=== PATIENT | female | born 1940 | race Caucasian/White ===

== ENCOUNTER 2018-05-30 23:04 | Emergency (ER) | payer MEDICARE, OTHER ==
[2018-05-30 23:19] VITALS: BP 168/92
--- NOTE | 2018-05-31 00:18 | ED Physician Documentation ---
PD HPI Fall - Stated complaint Stated Complaint: LOW BACK PAIN - Chief complaint Chief Complaint: Back Pain - History obtained from History obtained from: Patient - History of Present Illness Mechanism of injury: Slipped Fall distance: Standing position, Other (fell down 2 steps) Where injury occurred: Home Timing - onset: Enter time (18:30), Today Injury(ies) location: Chest, Back Pain level now: 4 Quality of pain: Pain Associated symptoms: No: LOC, AMS Symptoms improve with: Rest Worsens with: Movement, Palpation Contributing factors: No: Anticoagulated, Intoxicated Similar symptoms before: Has not had sx before Recently seen: Not recently seen - Additional information Additional information: slipped and fell down two steps at home at 6:30 PM today, struck right chest wall on edge of stair, c/o pain right Review of Systems Cardiac: reports: Chest pain / pressure (right chest wall pain) Respiratory: denies: Dyspnea, Cough GI: denies: Abdominal Pain, Nausea, Vomiting : denies: Hematuria Musculoskeletal: reports: Back pain. 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 HEENT: None Psych: None Musculoskeletal: None Derm: None - Past Surgical History Past Surgical History: Yes General: Other Ortho: Other - Present Medications Home Medications: Ambulatory Orders Medication Instructions Recorded Confirmed PredniSONE [PredniSONE INTENSOL] 10 mg PO ONCE 05/30/18 05/30/18 - Allergies Allergies/Adverse Reactions: Allergies Allergy/AdvReac Type Severity Reaction Status Date / Time Penicillins Allergy Intermediate Anaphylaxis Verified 05/30/18 23:10 - Social History Does the pt smoke?: No Smoking Status: Never smoker Does the pt drink ETOH?: No Does the pt have substance abuse?: No - Immunizations Immunizations are current?: No - POLST Patient has POLST: No PD ED PE NORMAL - Vitals Vital signs reviewed: Yes - General General: Alert and oriented X 3, No acute distress, Well developed/nourished - Respiratory Respiratory: No respiratory distress, Clear bilaterally - Abdomen Abdomen: Soft, Non tender - Back Back: No spinal TTP - Derm Derm: Normal color, Warm and dry - Neuro Neuro: Alert and oriented X 3 PD ED PE EXPANDED - Visual Whole body visual: 1 - tenderness (right posterolateral rib/bony tenderness; no RUQ tenderness) Results - Vitals Vitals: Vital Signs - 24 hr 05/30/18 05/31/18 05/31/18 23:12 00:45 01:40 Temperature 36.7 C Heart Rate 95 Respiratory 18 16 16 Rate Blood Pressure 168/92 H O2 Saturation 96 97 Oxygen O2 Source Room air - Rads (name of study) right ribs w/ PA C Radiology: Prelim report reviewed, See rad report PD MEDICAL DECISION MAKING - ED course Complexity details: reviewed results, re-evaluated patient, considered differential, d/w patient, d/w family - Sepsis Event Vital Signs: Vital Signs - 24 hr 05/30/18 05/31/18 05/31/18 23:12 00:45 01:40 Temperature 36.7 C Heart Rate 95 Respiratory 18 16 16 Rate Blood Pressure 168/92 H O2 Saturation 96 97 Oxygen O2 Source Room air Departure - Departure Disposition: 01 Home, Self Care Clinical Impression: Chest wall contusion Qualifiers: Encounter type: initial encounter Laterality: right Qualified Code(s): S20.211A - Contusion of right front wall of thorax, initial encounter Condition: Good Instructions: ED Contusion Chest Wall, ED Contusion Rib Follow-Up: Jennie Pritchard MD [Primary Care Provider] - Discharge Date/Time: 05/31/18 01:41
[2018-05-31] MEDS ORDERED: ACETAMINOPHEN 325 MG TABLET PO STA (00:32)
--- NOTE | 2018-05-31 01:21 | XRAY Report ---
Reason: fall, right low rib pain Procedure Date: 05/31/2018 Accession Number: [id number] / [id number] Procedure: XR - Ribs w/PA Chest RT CPT Code: FULL RESULT: EXAM: RIGHT RIB RADIOGRAPHY EXAM DATE: 05/31/2018 01:01 AM. CLINICAL HISTORY: Fall, right low rib pain. COMPARISON: None. TECHNIQUE: 1 view of the chest and 3 views of the ribs. FINDINGS: Bones: Normal. No fracture or bone lesion. Lungs: No focal opacities. No pneumothorax. No pleural effusions. Mediastinum: Heart and mediastinal contours are unremarkable. Other: None. IMPRESSION: Normal chest and rib radiography. RADIA
== END 2018-05-31 01:41 | disposition home or self-care (01) ==
LOC: ED 23:04
DX: S20.211A Contusion of right front wall of thorax, initial encounter (principal); W01.0XXA Fall on same level from slipping, tripping and stumbling without subsequent striking against object, initial encounter; W10.9XXA Fall (on) (from) unspecified stairs and steps, initial encounter; Y92.009 Unspecified place in unspecified non-institutional (private) residence as the place of occurrence of the external cause; I10 Essential (primary) hypertension; E78.00 Pure hypercholesterolemia, unspecified
CPT/HCPCS: 71101; 99282; 99283; A9270

== ENCOUNTER 2018-06-16 08:19 | Outpatient (CLI) | payer MEDICARE, OTHER | END 2018-06-16 08:20 | disposition critical access hospital (66) | LOC: EMS 08:19 | PROVIDERS: ATTEND Surgery | DX: R55 Syncope and collapse (principal); M25.571 Pain in right ankle and joints of right foot; W18.39XA Other fall on same level, initial encounter; Y92.000 Kitchen of unspecified non-institutional (private) residence as the place of occurrence of the external cause | CPT/HCPCS: A0425; A0429 ==

== ENCOUNTER 2018-06-16 08:50 | Inpatient (IN) | payer MEDICARE, OTHER ==
[2018-06-16 09:35] LABS: BASOPHILS # (AUTO) 0.1 10^3/uL (0.0-0.1); BASOPHILS % (AUTO) 0.4 %; EOSINOPHILS # (AUTO) 0.2 10^3/uL (0.0-0.7); EOSINOPHILS % (AUTO) 1.1 %; HGB - HEMOGLOBIN 12.3 g/dL (12.0-16.0); LYMPHOCYTES # (AUTO) 1.4 10^3/uL (1.5-3.5); LYMPHOCYTES % (AUTO) 10.5 %; MEAN CORPUSCULAR HEMOGLOBIN 31.1 pg (27.0-31.0); MEAN CORPUSCULAR HGB CONC 34.5 g/dL (32.0-36.0); MEAN CORPUSCULAR VOLUME 90.2 fL (81.0-99.0); MEAN PLATELET VOLUME 6.6 fL (7.9-10.8); MONOCYTES # (AUTO) 0.8 10^3/uL (0.0-1.0); MONOCYTES % (AUTO) 5.9 %; NEUTROPHILS # (AUTO) 11.2 10^3/uL (1.5-6.6); NEUTROPHILS % (AUTO) 82.1 %; PLT - PLATELET COUNT 258 10^3/uL (130-450); RED BLOOD COUNT 3.95 10^6/uL (4.20-5.40); RED CELL DISTRIBUTION WIDTH 15.1 % (12.0-15.0); WHITE BLOOD COUNT 13.6 x10^3/uL (4.8-10.8)
[2018-06-16 09:46] LABS: ALBUMIN 4.2 g/dL (3.2-5.5); ALBUMIN/GLOBULIN RATIO 1.3 (1.0-2.2); BILIRUBIN,TOTAL 1.1 mg/dL (0.2-1.0); CALCIUM 9.2 mg/dL (8.5-10.3); CREATININE 1.1 mg/dL (0.4-1.0); TOTAL PROTEIN 7.5 g/dL (6.7-8.2)
--- NOTE | 2018-06-16 10:12 | XRAY Report ---
Reason: syncope Procedure Date: 06/16/2018 Accession Number: [id number] / [id number] Procedure: XR - Chest 2 View X-Ray CPT Code: 74311 FULL RESULT: EXAM: CHEST RADIOGRAPHY EXAM DATE: 06/16/2018 09:48 AM. CLINICAL HISTORY: Syncope. COMPARISON: RIBS W/PA CHEST RT 05/31/2018 12:38 AM. TECHNIQUE: 2 views. FINDINGS: Lungs/Pleura: No focal opacities evident. No pleural effusion. No pneumothorax. Normal volumes. Mediastinum: Heart and mediastinal contours are unremarkable. Other: None. IMPRESSION: Normal 2-view chest radiography. RADIA
--- NOTE | 2018-06-16 10:18 | XRAY Report ---
Reason: fall Procedure Date: 06/16/2018 Accession Number: [id number] / [id number] Procedure: XR - Ankle 3 View RT CPT Code: FULL RESULT: EXAM: RIGHT ANKLE RADIOGRAPHY EXAM DATE: 06/16/2018 09:48 AM. CLINICAL HISTORY: Fall. COMPARISON: None. TECHNIQUE: 3 views. FINDINGS: Bimalleolar fracture with lateral displacement of the foot in respect to the proximal tibia and fibula. 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 IMPRESSION: Bimalleolar fracture. RADIA
--- NOTE | 2018-06-16 10:28 | CT Report ---
Reason: syncope 3 times today Procedure Date: 06/16/2018 Accession Number: [id number] / [id number] Procedure: CT - Head W/O CPT Code: FULL RESULT: EXAM: CT HEAD EXAM DATE: 06/16/2018 10:16 AM. CLINICAL HISTORY: Syncope 3 times today. COMPARISON: None. TECHNIQUE: Multiaxial CT images were obtained from the foramen magnum to the vertex. Reformats: Sagittal and coronal. IV contrast: None. In accordance with CT protocol optimization, one or more of the following dose reduction techniques were utilized for this exam: automated exposure control, adjustment of mA and/or KV based on patient size, or use of iterative reconstructive technique. FINDINGS: Parenchyma: No intraparenchymal hemorrhage. No evidence of mass, midline shift, or CT findings of infarction. Hodges-white differentiation is distinct. Extraaxial Spaces: Normal for age. No subdural or epidural collections identified. Ventricles: Normal in size and position. Sinuses and Orbits: Imaged paranasal sinuses, orbits, and mastoids show no significant abnormality. Bones: No evidence of fracture or calvarial defect. Other: None. IMPRESSION: No acute intracranial abnormality. RADIA
[2018-06-16] MEDS ORDERED: fentaNYL 100 MCG/2 ML VIAL IVP STA (11:01)
[2018-06-16] MEDS ORDERED: KETAMINE 500 MG/10 ML VIAL IVP STA (11:03)
[2018-06-16] MEDS ORDERED: CLINDAMYCIN 900 MG/50 ML 50 ML IV ONE (11:26)
--- NOTE | 2018-06-16 11:31 | PROVIDER PROGRESS NOTE ---
Subjective - Prog Note Date Prog Note Date: 06/16/18 Prog Note Time: 11:29 - Subjective Pt reports feeling: Worse (Patient fianted and apparently fell, sustaining a closed right ankle fracture/dislocation. No other injuries. Hx of prior ORIF of left ankle fracture in the past. ? hx of osteoporosis) Objective - Vital Signs/Intake & Output Vital Signs: Vital Signs x48h Temp Pulse Resp BP Pulse Ox 06/16/18 09:00 85 16 121/73 98 06/16/18 08:50 36.4 C L 86 16 131/108 H 96 - Lab Results Fish Bones: 06/16/18 09:17 06/16/18 09:17 Other Labs: Lab Results x24hrs 06/16/18 06/16/18 06/16/18 Range/Units 09:17 09:17 09:17 WBC 13.6 H (4.8-10.8) x10^3/uL RBC 3.95 L (4.20-5.40) 10^6/uL Hgb 12.3 (12.0-16.0) g/dL Hct 35.6 L (37.0-47.0) % MCV 90.2 (81.0-99.0) fL MCH 31.1 H (27.0-31.0) pg MCHC 34.5 (32.0-36.0) g/dL RDW 15.1 H (12.0-15.0) % Plt Count 258 (130-450) 10^3/uL MPV 6.6 L (7.9-10.8) fL Neut # (Auto) 11.2 H (1.5-6.6) 10^3/uL Lymph # (Auto) 1.4 L (1.5-3.5) 10^3/uL [place] # (Auto) 0.8 (0.0-1.0) 10^3/uL Eos # (Auto) 0.2 (0.0-0.7) 10^3/uL Baso # (Auto) 0.1 (0.0-0.1) 10^3/uL Absolute Nucleated RBC 0.00 x10^3/uL Nucleated RBC % 0.0 /100WBC Sodium 133 L (135-145) mmol/L Potassium 4.1 (3.5-5.0) mmol/L Chloride 96 L (101-111) mmol/L Carbon Dioxide 27 (21-32) mmol/L Anion Gap 10.0 (6-13) BUN 32 H (6-20) mg/dL Creatinine 1.1 H (0.4-1.0) mg/dL Estimated GFR (MDRD) 48 L (>89) Glucose 111 H (70-100) mg/dL Calcium 9.2 (8.5-10.3) mg/dL Total Bilirubin 1.1 H (0.2-1.0) mg/dL AST 28 (10-42) IU/L ALT 33 (10-60) IU/L Alkaline Phosphatase 82 (42-121) IU/L Troponin I < 0.04 (<0.49) ng/mL Total Protein 7.5 (6.7-8.2) g/dL Albumin 4.2 (3.2-5.5) g/dL Globulin 3.3 (2.1-4.2) g/dL Albumin/Globulin Ratio 1.3 (1.0-2.2) Lipase 61 H (22-51) U/L - Diagnostic Imaging Diagnostic Imaging Comments: EXAM: Right trimalleolar ankle fracture/dislocation - Other Results/Comments Other Results/Comments: EXAM: Right ankle deformity. Moves toes well. Sensation intact. Good cap filling Assessment/Plan - Problem List (1) Closed right ankle fracture Impression: PLAN: Closed reduction and splinting in ER today. Will be admitted and evaluated by medical service for her syncope. If cleared medically, plan ORIF of fracture Wednesday AM. Risk and benefit of surgery explained, including anesthesia risk, malunion, nonunion, infection, neurovascular problems, DVT, etc. Questions answered. Leg marked. Consent signed. Qualifiers: Encounter type: initial encounter Qualified Code(s): S82.891A - Other fracture of right lower leg, initial encounter for closed fracture
[2018-06-16] MEDS ORDERED: SODIUM CHLORIDE 0.9% 1,000 ML IV SCH (12:00)
[2018-06-16] MEDS ORDERED: SODIUM CHLORIDE FLUSH 0.9% 10 ML SYRINGE IVP PRN ×2 (12:38→13:19)
--- NOTE | 2018-06-16 12:41 | ED Physician Documentation ---
History of Present Illness - Stated complaint Stated Complaint: SYNCOPE - Chief complaint Chief Complaint: Cardiac - History obtained from History obtained from: Patient, Family - History of Present Illness Timing: Prior to arrival Pain level max: 0 Pain level now: 0 Quality: DIZZY THEN PASSED OUT LASTING 2-3 MINUTES. 3 TIMES AT HOME Improved by: NOTHING Worsened by: NOTHING - Additonal information Additional information: Pt stated was at the kitchen and felt dizzy then passed out. Family at the bedside heard pt and found her on the floor. When he tried to pick her up, he stated pt's eyes rolled then she passed out. She was out for 2-3 minutes. This occured again. Pt denies any recent trauma, travel, or illness. Review of Systems Ten Systems: 10 systems reviewed and negative Constitutional: denies: Fever, Myalgias Eyes: denies: Loss of vision Ears: denies: Tinnitus/ringing Cardiac: denies: Chest pain / pressure, Palpitations Respiratory: denies: Dyspnea GI: denies: Abdominal Pain, Nausea, Vomiting Musculoskeletal: reports: Extremity pain. denies: Neck pain, Back pain Neurologic: reports: Syncope, LOC. 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 HEENT: None Psych: None Musculoskeletal: None Derm: None - Past Surgical History Past Surgical History: Yes General: Other Ortho: Other - Present Medications Home Medications: Ambulatory Orders Medication Instructions Recorded Confirmed Calcium Carbonate/Vitamin D3 1 tab PO DAILY 06/16/18 06/16/18 [Calcium 500-Vit D3 600 Caplet] Multivitamin [Theragran] 1 tab PO DAILY 06/16/18 06/16/18 [place]-3 Acid Ethyl Esters [Lovaza] 1 gm PO DAILY 06/16/18 06/16/18 RX: Aspirin 162 mg PO DAILY 06/16/18 06/16/18 RX: Atorvastatin Calcium 80 mg PO QPM 06/16/18 06/16/18 RX: Losartan [Cozaar] 75 mg PO DAILY 06/16/18 06/16/18 RX: Omeprazole 20 mg PO QDAC 06/16/18 06/16/18 RX: Polyethylene Glycol 3350 17 gm PO QPM 06/16/18 06/16/18 RX: Prednisone 10 mg PO [id number] 06/16/18 06/16/18 RX: Vitamin B Complex 1 tab PO DAILY 06/16/18 06/16/18 predniSONE [Prednisone] 12.5 mg PO [id number] 06/16/18 06/16/18 - Allergies Allergies/Adverse Reactions: Allergies Allergy/AdvReac Type Severity Reaction Status Date / Time Penicillins Allergy Intermediate Anaphylaxis Verified 06/16/18 08:57 - Social History Does the pt smoke?: No Smoking Status: Never smoker Does the pt drink ETOH?: No Does the pt have substance abuse?: No - Immunizations Immunizations are current?: Yes - POLST Patient has POLST: No PD ED PE NORMAL - Vitals Vital signs reviewed: Yes - General General: Alert and oriented X 3, No acute distress, Well developed/nourished - HEENT HEENT: PERRL, EOMI, Moist mucous membranes - Neck Neck: Supple, no meningeal sign, No bony TTP - Cardiac Cardiac: RRR, No murmur, Strong equal pulses - Respiratory Respiratory: No respiratory distress, Clear bilaterally - Abdomen Abdomen: Normal bowel sounds, Soft, Non tender, Non distended - Back Back: No CVA TTP, No spinal TTP - Derm Derm: Normal color, Warm and dry - Extremities Extremities: No edema, No calf tenderness / cord, Other (Right ankle with deformity, tender to palpation of both malleolar areas but no skin tenting. DP, PP +2. Sensation intact. Temp WNL. No tenderness of the foot nor peroneal area.) - Neuro Neuro: Alert and oriented X 3, grain drier 2-12 intact, No motor deficit, No sensory deficit, Normal speech - Psych Psych: Normal mood, Normal affect Results - Vitals Vitals: Vital Signs - 24 hr 06/16/18 06/16/18 06/16/18 08:50 09:00 12:23 Temperature 36.4 C L Heart Rate 86 85 100 Respiratory 16 16 15 Rate Blood Pressure 131/108 H 121/73 161/96 H O2 Saturation 96 98 99 06/16/18 06/16/18 12:26 12:29 Temperature Heart Rate 105 H 91 Respiratory 20 18 Rate Blood Pressure 168/99 H O2 Saturation 98 Oxygen O2 Source Room air - EKG (time done) 0956 Rate: Rate (enter#) Rhythm: NSR [place]: Normal Intervals: Normal MT QRS: Normal Ischemia: T wave inversion (leads III and avF) - Labs Labs: Laboratory Tests 06/16/18 06/16/18 06/16/18 09:17 09:17 09:17 WBC 13.6 H RBC 3.95 L Hgb 12.3 Hct 35.6 L MCV 90.2 MCH 31.1 H MCHC 34.5 RDW 15.1 H Plt Count 258 MPV 6.6 L Neut # (Auto) 11.2 H Lymph # (Auto) 1.4 L [place] # (Auto) 0.8 Eos # (Auto) 0.2 Baso # (Auto) 0.1 Absolute Nucleated RBC 0.00 Nucleated RBC % 0.0 Sodium 133 L Potassium 4.1 Chloride 96 L Carbon Dioxide 27 Anion Gap 10.0 BUN 32 H Creatinine 1.1 H Estimated GFR (MDRD) 48 L Glucose 111 H Calcium 9.2 Total Bilirubin 1.1 H AST 28 ALT 33 Alkaline Phosphatase 82 Troponin I < 0.04 Total Protein 7.5 Albumin 4.2 Globulin 3.3 Albumin/Globulin Ratio 1.3 Lipase 61 H - Rads (name of study) cxr, right ankle, ct head scan Radiology: See rad report Procedures - Reduction Body part reduced: Right, Ankle Fracture or dislocation: Fracture dislocation Anesthesia: Conscious sedation, Fentanyl, Other (ketamine) Reduction aftercare: NV intact, Xray confirms reduction, Alignment improved, Splint applied, Patient tolerated well - Procedural sedation Sedation prep: Informed consent, Time out completed, PE performed, AHA 2 - mild disease, IV O2 monitor, ET CO2 monitor, RT present Sedation medications: fentanyl, ketamine Patient status during sedation: Drowsy, Responds to verbal, Vitals remained stable, Maintained airway, Recovered uneventfully Sedation recovery: Recovered uneventfully, Back to baseline PD MEDICAL DECISION MAKING - ED course Complexity details: reviewed results, re-evaluated patient (1045 Informed of test results including ortho consult and admission which pt agreed to. Agreed to conscious sedation for reduction of her right ankle. Procedure delayed due to a critical pt who just arrived. [address] Shafer at the bedside speaking to the pt. 1146 Reevaluated pt's CV and airway status in preparation for moderate sedation. Consent was signed after discussion of risk and benefits. 1212 to 1220 moderate sedation with fentanyl 25 mcg and ketamine 25 mg tolerated by pt. RT at the bedside. posterior stirrup with splint applied by tech and I assisted. NVI after splint was properly placed. 1233 Case discussed with hospitalist Dr Lynn Laws. She accepted admission for full admit. Informed of ortho consult and possible surgery tomorrow if pt is cleared medically. 1300 AAOX3. NAD. Awaiting bed.), considered differential (TIA/CVA, ICB, ARRHYTHMIA, LYTE IMBALANCE, ANKLE FRACTURE/DISLOCATION), d/w patient, d/w family - Consults Consults: Consulted (name) (ortho Dr Shafer at 1041) Departure - Departure Disposition: 66 [facility] DC/Xfer Clinical Impression: Syncope and collapse Bimalleolar ankle fracture Qualifiers: Encounter type: initial encounter Fracture type: closed Laterality: right Qualified Code(s): S82.841A - Displaced bimalleolar fracture of right lower leg, initial encounter for closed fracture Discharge Date/Time: 06/16/18 13:15
--- NOTE | 2018-06-16 12:41 | CONSULTATION NOTE ---
DATE OF SERVICE: 06/16/2018 Physician: Amaury Shafer MD REFERRING PHYSICIAN: Destiney Silveira DO, of the emergency room. CHIEF COMPLAINT: "I hurt my right ankle." HISTORY OF PRESENT ILLNESS: Christine Edward is a 77-year-old, female who apparently had a s yncopal spell at home on the day of her admission. She is unclear how she injured her right ankle, b ut when she awoke from her syncopal spell, she noted a right ankle deformity and pain. She was unabl e to stand or weight bear on this extremity. She was taken by ambulance to the emergency room here, at [facility], where x-rays showed a trimalleolar closed right ankle fracture dislocati on. The patient was to have a closed reduction and splinting of her fracture done in the emergency r oom. Because of her syncopal spell, the plan was to have her admitted to the hospitalist service to be evaluated medically. The patient, at this moment, denies any distal weakness and numbness in the right lower extremity. No prior right ankle fractures, though she has had a history of a left ankle fracture that did require surgical fixation. Apparently, it sounds as if she had significantly osteo porotic bone that made fixation of her left ankle fracture somewhat difficult. PHYSICAL EXAMINATION: Reveals an elderly, female, lying in the stretcher, in a moderate am ount of distress. Right leg: Patient has an obvious deformity of the right ankle. A closed injury was noted. The patient moves her toes on command. Sensation appeared to be intact in the foot. Goo d capillary filling noted as well. IMAGING: X-rays that were taken show evidence of a trimalleolar ankle fracture dislocation of the ri t ankle. ASSESSMENT: 1. Closed right trimalleolar ankle fracture dislocation. 2. Syncope. PLAN: The patient is being admitted to the medical service for workup of her syncopal spell. Pendbrenda clark medical evaluation and stabilization and clearance, we will plan then on proceeding with surgical f ixation of her fracture. It has been tentatively scheduled for Wednesday morning at 7:30. The risks an d benefits of surgery were explained to the patient today. These include, but are not limited to, an esthesia risks, malunion, nonunion, infection, blood loss, deep venous thromboses, posttraumatic arth ritis, etc. The patient's questions were answered. She appears to understand her diagnosis and william tment options and wishes to proceed with surgery as planned. The leg was then marked and consent sig yahir. TD: 06/16/2018 11:49
--- NOTE | 2018-06-16 12:42 | HISTORY & PHYSICAL EXAMINATION ---
Chief Complaint - Chief Complaint Chief Complaint: syncope and collapse,right ankle fx History of Present Illness - Admitted From Admitted From:: ED - History Obtained From Records Reviewed: yes History obtained from: chart review, patient Exam Limitations: AMS - History of Present Illness HPI Comment/Other: Christine Edward is a 77-year old female with a past medical history of hyperlipidemia, hypertension, diverticulosis, GERD, insomnia, osteoporosis, trigger finger, and DJD of ankle/foot. The patient presented to the ED with a primary complaint of syncope and collapse with right foot pain. The patient describes this episode that occurred around 7AM when she was alone in her kitchen, felt dizzy, slowly slid to the floor, had her cell phone in her pocket and called her who was in the next building. The story then becomes unclear as she claims she does not remember, although believes that she crawled into the bathroom and noticed her right ankle was not in alignment and thinks that it may have gotten caught under the island, and she was unable to bear weight. When her arrived, she appeared lethargic, so her attempted to lift her to her feet, but she seemed to loose consciousness, so he lowered her back down to the floor. She started to wake up, so he again attempted to get her on her feet, but the same thing happened, where she went limp and seemed to loose consciousness. EMS was called and she was transported to the ED arriving around 0850AM. Imaging of the patient's right ankle, chest and a head CT was completed. All showed no abnormalities, except the ankle x- ray showing an acute bimalleolar fracture, so a call to orthopedic surgery was made. She was seen and examined in the ED by Dr. Shafer, but he would appreciate Hospitalist to be the primary for a pre-op exam and further investigation into the patient's syncope and collapse. Labs showed dehydration leading to acute kidney injury with an elevated BUN of 32, an elevated creatinine of 1.1, and a reduced GFR of 48. She had a low sodium of 133, an elevated glucose of 111 and an elevated bili of 1.1. Her troponin was negative at 0.4, and she had a mildly low lipase of 61. Her CBC reflects recent steroid use with an elevated WBC count of 13.6. She was hypertensive with a blood pressure of 168/99, tach ycardia with a heart rate of 105, and afebrile. On exam, the patient is conversational, no focal deficits, and has had no other injuries from her fall. She denies chest pain, shortness of breath, rashes, nausea, vomiting, poor appetite, or a new cough. She will be admitted to inpatient as she has electrolyte abnormalities, will undergo a syncope work up, and will undergo a surgical repair of her right ankle if her work up is normal. Her and daughter are at the bedside for this exam. 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 They spend their camp[place] in [facility] and have built a home there. They have a son and a daughter, several grandchildren. She denies alcohol, tobacco or illicit drug use. She wishes to be a FULL code. - Substance History Use: Uses substance without health or social issues: NONE Abuse: Recurrent use of substance despite neg consequences: NONE Dependence: Experiences withdrawal or developed tolerances: NONE - POLST Patient has POLST: No POLST Status: Full Code Meds/Allgy - Home Medications Home Medications: Ambulatory Orders Medication Instructions Recorded Confirmed Aspirin 162 mg PO DAILY 06/16/18 06/16/18 Atorvastatin Calcium 80 mg PO QPM 06/16/18 06/16/18 Calcium Carbonate/Vitamin D3 1 tab PO DAILY 06/16/18 06/16/18 [Calcium 500-Vit D3 600 Caplet] Losartan [Cozaar] 75 mg PO DAILY 06/16/18 06/16/18 Multivitamin [Theragran] 1 tab PO DAILY 06/16/18 06/16/18 [place]-3 Acid Ethyl Esters [Lovaza] 1 gm PO DAILY 06/16/18 06/16/18 Omeprazole 20 mg PO QDAC 06/16/18 06/16/18 Polyethylene Glycol 3350 17 gm PO QPM 06/16/18 06/16/18 Prednisone 10 mg PO [id number] 06/16/18 06/16/18 Vitamin B Complex 1 tab PO DAILY 06/16/18 06/16/18 predniSONE [Prednisone] 12.5 mg PO [id number] 06/16/18 06/16/18 - Allergies Allergies/Adverse Reactions: Allergies Allergy/AdvReac Type Severity Reaction Status Date / Time Penicillins Allergy Intermediate Anaphylaxis Verified 06/16/18 08:57 Review of Systems - Constitutional Constitutional: reports: Fatigue - Eyes Eyes: reports: Corrective lenses - Ears, Nose & Throat Ears, Nose & Throat: reports: Mouth lesions (now healed) - Cardiovascular Cariovascular: reports: Lightheadedness, Syncope - Gastrointestinal Gastrointestinal: reports: Constipation, Reflux/heartburn - Musculoskeletal Musculoskeletal: reports: Muscle aches - Neurological Neurological: reports: Dizziness, Pre-existing deficit - All Other Systems All Other Systems: reports: Reviewed and negative Prior Level of Functionality: Independent, still works and is very active with daily planned exercise. No use of devices for ambulation. A few recent falls similar to this episode in the past year. Exam - Vital Signs Reviewed Vital Signs: Yes Vital Signs: Vital Signs x48h Temp Pulse Resp BP Pulse Ox 06/16/18 12:29 91 18 168/99 H 98 06/16/18 12:26 105 H 20 06/16/18 12:23 100 15 161/96 H 99 06/16/18 09:00 85 16 121/73 98 06/16/18 08:50 36.4 C L 86 16 131/108 H 96 - Physical Exam General Appearance: positive: Alert, Mild distress Eyes Bilateral: positive: PERRL ENT: positive: Pharynx nml, No signs of dehydration Neck: positive: Thyroid nml, No JVD, Trachea midline Respiratory: positive: Chest non-tender, No respiratory distress, Breath sounds nml Cardiovascular: positive: Regular rate & rhythm, No gallop, Systolic murmur Peripheral Pulses: positive: 2+ Abdomen: positive: Non-tender, Nml bowel sounds Back: positive: Nml inspection Skin: positive: Color nml, No rash, Warm, Dry Extremities: positive: Nml appearance, Pedal edema, Joint swelling (right greater than left swelling), Other Neurologic/Psychiatric: positive: Oriented x3, CN's nml (2-12), Motor nml, Sensation nml, Weakness, Depressed mood/affect Reflexes: Bicep (R): 3+, Bicep (L): 3+ Conclusion/Plan - Problem List (1) Syncope and collapse Conclusion/Plan: The patient describes this episode that occurred around 7AM when she was alone in her kitchen, felt dizzy, slowly slid to the floor, had her cell phone in her pocket and called her who was in the next building. The story then becomes unclear as she claims she does not remember, although believes that she crawled into the bathroom. When he arrived, she appeared lethargic, so her attempted to lift her to her feet, but she seemed to loose consciousness, so he lowered her back down to the floor. She started to wake up, so he again attempted to get her on her feet, but the same thing happened, where she went limp and seemed to loose consciousness. Plan: head MRI, carotid dopplers, telemetry, and echo are pending, continue care. (2) Closed right ankle fracture Conclusion/Plan: The patient has a confirmed right ankle fracture on imaging that notes a bimalleolar fracture. Dr. Shafer has already met the patient and plans to perform a right ankle repair in the morning. It has been reduced and splinted and remains swollen with +sensation, +cap refill and cool toes. Plan: Continue care, and the patient will undergo surgery in the AM, so she will be made NPO. Qualifiers: Encounter type: initial encounter Qualified Code(s): S82.891A - Other fracture of right lower leg, initial encounter for closed fracture (3) Pre-operative examination for internal medicine Conclusion/Plan: The patient has a 0.9% risk of a major cardiac event based on the Revised Cardiac Risk Index for Pre-Operative exam. She has evidence of previous strokes on her head MRI, which influenced the score. The patient was informed of these results. Plan: Continue care. (4) Fall Conclusion/Plan: The patient admits to a recent previous fall that was similar to this event and she sustained a chest wall contusion. This is resolved. For this fall, she had a brief warning, and soon slumped to the floor, but believes that she remained conscious until her attempted to stand her multiple times. Plan: Continue syncope work up. Qualifiers: Encounter type: subsequent encounter Qualified Code(s): W19.XXXD - Unspecified fall, subsequent encounter (5) JAYLEN (acute kidney injury) Conclusion/Plan: The patient denies any history of kidney disease, is not diabetic and claims that she has never had any urinary problems. She is found to have an elevated creatinine of 1.1 upon admission, with an unknown baseline creatinine. Her current GFR is reduced at 48. Plan: Start gentle IV fluids, monitor daily labs. (6) Polymyalgia rheumatica Conclusion/Plan: The patient has been on a steroid taper as per her PCP for this condition. She finds that her bilateral thighs are weak at times and she has generalized fatigue. Plan: Continue steroid post-op. (7) Essential hypertension Conclusion/Plan: The patient is prescribed Losartan at home. This is on hold briefly during her pre-op state. Plan: Continue to monitor vital signs. - Lab Results Lab results reviewed: Yes Fish Bones: 06/17/18 05:34 06/17/18 05:34 - Diagnostic Imaging Results Diagnostic Imaging Results: positive: Final report reviewed Diagnostic Imaging Results Comments: EXAM: RIGHT ANKLE RADIOGRAPHY EXAM DATE: 06/16/2018 09:48 AM. FINDINGS: Bimalleolar fracture with lateral displacement of the foot in respect to the proximal tibia and fibula. 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 IMPRESSION: Bimalleolar fracture. EXAM: CHEST RADIOGRAPHY EXAM DATE: 06/16/2018 09:48 AM. IMPRESSION: Normal 2-view chest radiography. EXAM: CT HEAD EXAM DATE: 06/16/2018 10:16 AM. IMPRESSION: No acute intracranial abnormality. - EKG Results EKG Interpreted Independently: Yes EKG Comparison: No prior EKG EKG Findings: sinus Core Measures - Anticipated LOS I expect patient to be DC'd or transferred within 96 hours.: Yes - DVT/VTE - Prophylaxis VTE/DVT Device ordered at admit?: Yes VTE/DVT Prophylaxis med ordered at admit?: No Not Ordered - Medical Reason: Contraindicated - Stroke - Rehab Assessment Rehab services assessment to be ordered?: Yes - AMI - Statin at Admit Aspirin Prescribed on Admit: No Not Ordered - Medical Reason: Contraindicated
--- NOTE | 2018-06-16 13:21 | XRAY Report ---
Reason: POST REDUCTION Procedure Date: 06/16/2018 Accession Number: [id number] / [id number] Procedure: XR - Ankle 2 View RT CPT Code: FULL RESULT: EXAM: RIGHT ANKLE RADIOGRAPHY EXAM DATE: 06/16/2018 01:10 PM. CLINICAL HISTORY: Post reduction. COMPARISON: Ankle 3 view right 06/16/2018 9:27 AM. TECHNIQUE: 3 views. FINDINGS: Interval casting of the previously demonstrated unstable ankle fracture with overall improved alignment, specifically anterior posteriorly. No new abnormalities identified. IMPRESSION: Interval casting with improved alignment. RADIA
--- NOTE | 2018-06-16 14:28 | MRI Report ---
Reason: TIA, syncope Procedure Date: 06/16/2018 Accession Number: [id number] / [id number] Procedure: MRI - Brain W/O CPT Code: FULL RESULT: EXAM: MRI BRAIN WITHOUT CONTRAST EXAM DATE: 06/16/2018 02:13 PM. CLINICAL HISTORY: TIA, syncope. Confusion. COMPARISON: No prior MRI. TECHNIQUE: Multiplanar, multisequence T1-weighted and fluid-sensitive MR sequences of the brain were performed. Sequences optimized for routine evaluation. Other: None. IV Contrast: None. FINDINGS: No restricted diffusion to suggest acute or recent ischemic infarct. No cerebral hemorrhage. No mass effect, midline shift or abnormal subdural fluid collection. Grossly normal brain volume for age. No hydrocephalus. Small chronic bilateral cerebellar infarcts. The largest on the left measures about 5 mm. Mild multifocal nonspecific cerebral white matter disease, T2 hyperintense signal changes may be attributable to aging and mild chronic microangiopathy. The major arterial skull base flow voids are present. No acute appearing sinus or mastoid disease. IMPRESSION: No MRI evidence for acute intracranial abnormality. Mild atrophy. Mild multifocal findings of chronic ischemic brain disease including small bilateral chronic cerebellar infarcts. RADIA
[2018-06-16 14:49] LABS: MUDS CUTOFF CONCENTRATIONS CUTOFF CONC BELOW:
[2018-06-16 14:53] LABS: BILIRUBIN,URINE NEGATIVE (NEGATIVE); GLUCOSE, URINE (UA) NEGATIVE (NEGATIVE); KETONES,URINE (UA) NEGATIVE (NEGATIVE); LEUKOCYTE ESTERASE, URINE NEGATIVE (NEGATIVE); NITRITE,URINE NEGATIVE (NEGATIVE); OCCULT BLOOD,URINE NEGATIVE (NEGATIVE); PH,URINE 7.5 PH (5.0-7.5); PROTEIN,URINE NEGATIVE (NEGATIVE); UROBILINOGEN,URINE 0.2 (NORMAL) E.U./dL (NORMAL)
[2018-06-16 14:54] LABS: CLARITY,URINE CLEAR (CLEAR)
[2018-06-16 15:02] LABS: AMPHETAMINE SCREEN,URINE NEGATIVE (NEGATIVE); BENZODIAZEPINES SCREEN, URINE NEGATIVE (NEGATIVE); COCAINE SCREEN URINE NEGATIVE (NEGATIVE); METHADONE SCREEN, URINE NEGATIVE (NEGATIVE); METHAMPHETAMINES SCREEN, URINE NEGATIVE (NEGATIVE); OPIATE SCREEN, URINE NEGATIVE (NEGATIVE); OXYCODONE SCREEN, URINE NEGATIVE (NEGATIVE); PROPOXYPHENE SCREEN, URINE NEGATIVE (NEGATIVE); TRICYCLIC ANTIDEPRESSANT,URINE NEGATIVE (NEGATIVE)
[2018-06-16] MEDS ORDERED: SODIUM CHLORIDE FLUSH 0.9% 10 ML SYRINGE IVP SCH (17:00)
[2018-06-16] MEDS: SODIUM CHLORIDE FLUSH 0.9% 10 ML SYRINGE IVP SCH ×2 (17:19→20:49)
[2018-06-16] MEDS: SODIUM CHLORIDE 0.9% 1,000 ML IV SCH (17:19)
[2018-06-16] MEDS ORDERED: ONDANSETRON 4 MG/2 ML VIAL IVP PRN (18:17)
[2018-06-16] MEDS ORDERED: ACETAMINOPHEN 325 MG TABLET PO PRN (18:17)
[2018-06-16] MEDS: HYDROmorphone 1 MG/ML CARPUJECT IVP PRN ×2 (18:45→22:21)
[2018-06-16] MEDS: TEMAZEPAM 7.5 MG CAPSULE PO SCH (20:49)
[2018-06-16] MEDS: PANTOPRAZOLE 40 MG VIAL IVP SCH (20:49)
--- NOTE | 2018-06-16 23:03 | Ultrasound Report ---
Reason: syncope and collapse Procedure Date: 06/16/2018 Accession Number: [id number] / [id number] Procedure: US - Carotid Doppler Complete CPT Code: FULL RESULT: EXAM: BILATERAL CAROTID AND VERTEBRAL ARTERY DUPLEX DOPPLER ULTRASOUND: EXAM DATE: 06/16/2018 10:06 PM CLINICAL HISTORY: Syncope and collapse. COMPARISON: None. TECHNIQUE: Grayscale imaging, color Doppler, and duplex spectral Doppler were used to evaluate the carotid and vertebral arteries bilaterally. Static images were obtained. FINDINGS: There is mild primarily calcified plaque at the right carotid bulb and throughout the internal carotid artery. Moderate shadowing plaque seen at the left common carotid bifurcation and internal carotid artery. Peak systolic velocities however remain within normal limits bilaterally. Normal antegrade flow is present in bilateral vertebral arteries. VELOCITIES (cm/sec): Right CCA mid: PSV 83.9 cm/sec CCA dist: PSV 60.10 cm/sec ICA prox: PSV 82.3 cm/sec, EDV 27.1 cm/sec ICA mid: PSV 96.9 cm/sec, EDV 30.3 cm/sec ICA dist: PSV 95.8 cm/sec, EDV 29.8 cm/sec ECA: PSV 87.2 cm/sec Vert: PSV 59.0 cm/sec ICA/CCA: 1.4 Left CCA mid: PSV 89.7 cm/sec CCA dist: PSV 61.9 cm/sec ICA prox: PSV 117.8 cm/sec, EDV 35.7 cm/sec ICA mid: PSV 115.9 cm/sec, EDV 39 cm/sec ICA dist: PSV 100.7 cm/sec, EDV 37.9 cm/sec ECA: PSV 122.4 cm/sec Vert: PSV 22.5 cm/sec ICA/CCA: 1.9 ICA diameter stenosis: Right: <50% by velocity and <70% by NASCET criteria. Left: <50% by velocity and <70% by NASCET criteria. IMPRESSION: 1. Mild right and moderate left common and internal carotid artery atheromatous plaque with less than 50% stenosis. General Recommendations: Stenosis =50% ICA - Follow-up ultrasound 6-12 months Stenosis <50% ICA - High Risk Patient with plaque - Follow-up ultrasound 1-2 years Normal Study but High Risk Patient - Follow-up ultrasound 3-5 years Management recommendations and diagnostic criteria are based on current IAC endorsed standards in Carotid Artery Stenosis: Grayscale and Doppler Ultrasound Diagnosis. Validated velocity measurements with angiographic measurements and velocity criteria are extrapolated from diameter data as defined by the Society of Radiologists in Ultrasound Consensus Conference Radiology 2003; 229;340-346. RADIA
[2018-06-17] MEDS: HYDROmorphone 1 MG/ML CARPUJECT IVP PRN (05:05)
[2018-06-17] MEDS: SODIUM CHLORIDE 0.9% 1,000 ML IV SCH ×3 (05:13→21:09)
[2018-06-17 06:09] LABS: BASOPHILS % (AUTO) 0.4 %; EOSINOPHILS # (AUTO) 0.2 10^3/uL (0.0-0.7); EOSINOPHILS % (AUTO) 1.8 %; HGB - HEMOGLOBIN 10.7 g/dL (12.0-16.0); LYMPHOCYTES # (AUTO) 1.5 10^3/uL (1.5-3.5); LYMPHOCYTES % (AUTO) 17.4 %; MEAN CORPUSCULAR HEMOGLOBIN 31.4 pg (27.0-31.0); MEAN CORPUSCULAR HGB CONC 34.2 g/dL (32.0-36.0); MEAN CORPUSCULAR VOLUME 91.7 fL (81.0-99.0); MEAN PLATELET VOLUME 6.4 fL (7.9-10.8); MONOCYTES # (AUTO) 0.9 10^3/uL (0.0-1.0); MONOCYTES % (AUTO) 9.9 %; NEUTROPHILS # (AUTO) 6.2 10^3/uL (1.5-6.6); NEUTROPHILS % (AUTO) 70.5 %; PLT - PLATELET COUNT 226 10^3/uL (130-450); RED BLOOD COUNT 3.42 10^6/uL (4.20-5.40); RED CELL DISTRIBUTION WIDTH 14.8 % (12.0-15.0); WHITE BLOOD COUNT 8.8 x10^3/uL (4.8-10.8)
[2018-06-17 06:22] LABS: ALBUMIN 3.7 g/dL (3.2-5.5); ALBUMIN/GLOBULIN RATIO 1.3 (1.0-2.2); BILIRUBIN,TOTAL 0.9 mg/dL (0.2-1.0); CALCIUM 8.7 mg/dL (8.5-10.3); CREATININE 1.1 mg/dL (0.4-1.0); MAGNESIUM 1.9 mg/dL (1.7-2.8); PHOSPHORUS 3.2 mg/dL (2.5-4.6); TOTAL PROTEIN 6.6 g/dL (6.7-8.2)
[2018-06-17 06:24] LABS: PT - PROTHROMBIN TIME 11.5 secs (9.9-12.6)
[2018-06-17] MEDS: PANTOPRAZOLE 40 MG VIAL IVP SCH (06:45)
[2018-06-17 06:51] LABS: HB2 TOTAL 11.2 g/dL; HEMOGLOBIN A1C 0.46 g/dL; HEMOGLOBIN A1C % 5.9 % (4.6-6.2)
--- NOTE | 2018-06-17 07:16 | ANESTHESIA ---
Pre-Anesthesia VS, & Labs - Diagnosis L ankle fx - Procedure ORIF R ankle Vital Signs: Temp Pulse Resp BP Pulse Ox 36.5 C 80 16 118/73 96 06/17/18 04:00 06/17/18 04:00 06/17/18 04:00 06/17/18 04:00 06/17/18 04:00 Height 5 ft Weight (kg) 56 kg Body Mass Index 24.0 - NPO >8 hours - Is Patient ?: No - Lab Results Current Lab Results: Laboratory Tests 06/17/18 05:34: TSH 2.45 06/17/18 05:34: Glycated Hemoglobin 5.9, Estim Average Glucose 123 H 06/17/18 05:34: Sodium 135, Potassium 4.3, Chloride 101, Carbon Dioxide 24, Anion Gap 10.0, BUN 23 H, Creatinine 1.1 H, Estimated GFR (MDRD) 48 L, Glucose 128 H, Calcium 8.7, Phosphorus 3.2, Magnesium 1.9, Total Bilirubin 0.9, AST 26, ALT 26, Alkaline Phosphatase 71, Total Protein 6.6 L, Albumin 3.7, Globulin 2.9, Albumin/Globulin Ratio 1.3, Amylase 77, Lipase 28 06/17/18 05:34: PT 11.5, INR 1.0, APTT 22.1 L 06/17/18 05:34: WBC 8.8, RBC 3.42 L, Hgb 10.7 L, Hct 31.4 L, MCV 91.7, MCH 31.4 H, MCHC 34.2, RDW 14.8, Plt Count 226, MPV 6.4 L, Neut # (Auto) 6.2, Lymph # (Auto) 1.5, Tillman # (Auto) 0.9, Eos # (Auto) 0.2, Baso # (Auto) 0.0, Absolute Nucleated RBC 0.00, Nucleated RBC % 0.0 06/16/18 14:25: Urine Opiates Screen NEGATIVE, Ur Oxycodone Screen NEGATIVE, Urine Methadone Screen NEGATIVE, Ur Propoxyphene Screen NEGATIVE, Ur Barbiturates Screen NEGATIVE, Ur Tricyclics Screen NEGATIVE, Ur Phencyclidine Scrn NEGATIVE, Ur Amphetamine Screen NEGATIVE, U Methamphetamines Scrn NEGATIVE, U Benzodiazepines Scrn NEGATIVE, Urine Cocaine Screen NEGATIVE, U Cannabinoids Screen NEGATIVE 06/16/18 09:17: Troponin I < 0.04 06/16/18 09:17: Sodium 138, Potassium 4.1, Chloride 96 L, Carbon Dioxide 27, Anion Gap 15.0 H, BUN 32 H, Creatinine 1.1 H, Estimated GFR (MDRD) 48 L, Glucose 111 H, Calcium 9.2, Total Bilirubin 1.1 H, AST 28, ALT 33, Alkaline Phosphatase 82, Total Protein 7.5, Albumin 4.2, Globulin 3.3, Albumin/Globulin Ratio 1.3, Lipase 61 H 06/16/18 09:17: WBC 13.6 H, RBC 3.95 L, Hgb 12.3, Hct 35.6 L, MCV 90.2, MCH 31.1 H, MCHC 34.5, RDW 15.1 H, Plt Count 258, MPV 6.6 L, Neut # (Auto) 11.2 H, Lymph # (Auto) 1.4 L, Tillman # (Auto) 0.8, Eos # (Auto) 0.2, Baso # (Auto) 0.1, Absolute Nucleated RBC 0.00, Nucleated RBC % 0.0 Lab results reviewed: Yes Fish Bones: 06/17/18 05:34 06/17/18 05:34 Home Medications and Allergies Home Medications: Ambulatory Orders Aspirin 162 mg PO DAILY 06/16/18 Atorvastatin Calcium 80 mg PO QPM 06/16/18 Calcium Carbonate/Vitamin D3 [Calcium 500-Vit D3 600 Caplet] 1 tab PO DAILY 06/16/18 Losartan [Cozaar] 75 mg PO DAILY 06/16/18 Multivitamin [Theragran] 1 tab PO DAILY 06/16/18 [place]-3 Acid Ethyl Esters [Lovaza] 1 gm PO DAILY 06/16/18 Omeprazole 20 mg PO QDAC 06/16/18 Polyethylene Glycol 3350 17 gm PO QPM 06/16/18 Prednisone 10 mg PO [id number] 06/16/18 Vitamin B Complex 1 tab PO DAILY 06/16/18 predniSONE [Prednisone] 12.5 mg PO [id number] 06/16/18 Active Medications Acetaminophen (Tylenol) 650 mg PO Q4HR PRN PRN Reason: Pain or Fever > 38C (100.4F) Hydromorphone HCl (Dilaudid Inj Carp) 1 mg IVP Q2HR PRN PRN Reason: PAIN Last Admin: 06/17/18 05:05 Dose: 1 mg Clindamycin Phosphate (Cleocin 900 Mg/50 Ml) 50 mls @ 50 mls/hr IV ONCE [facility] Stop: 06/17/18 12:00 Sodium Chloride (Normal Saline 0.9%) 1,000 mls @ 83.333 mls/hr IV .Q12H [facility] Last Admin: 06/17/18 05:13 Dose: 83.333 mls/hr Ondansetron HCl (Zofran Inj) 4 mg IVP Q4HR PRN PRN Reason: Nausea / Vomiting Pantoprazole Sodium (Protonix) 40 mg IVP QDAC [facility] Last Admin: 06/17/18 06:45 Dose: 40 mg Polyethylene Glycol (Miralax) 17 gm PO DAILY [facility] Sodium Chloride (Normal Saline Flush 0.9%) 10 ml IVP PRN PRN PRN Reason: NEEDED PER PROVIDER ORDERS Last Admin: 06/17/18 06:45 Dose: 10 ml Sodium Chloride (Normal Saline Flush 0.9%) 10 ml IVP 0100,0900,1700 [facility] Last Admin: 06/16/18 20:49 Dose: 10 ml Temazepam (Restoril) 7.5 mg PO QPM [facility] Last Admin: 06/16/18 20:49 Dose: 7.5 mg Aspirin 162 mg PO DAILY 06/16/18 Atorvastatin Calcium 80 mg PO QPM 06/16/18 Calcium Carbonate/Vitamin D3 [Calcium 500-Vit D3 600 Caplet] 1 tab PO DAILY 06/16/18 Losartan [Cozaar] 75 mg PO DAILY 06/16/18 Multivitamin [Theragran] 1 tab PO DAILY 06/16/18 [place]-3 Acid Ethyl Esters [Lovaza] 1 gm PO DAILY 06/16/18 Omeprazole 20 mg PO QDAC 06/16/18 Polyethylene Glycol 3350 17 gm PO QPM 06/16/18 Prednisone 10 mg PO [id number] 06/16/18 Vitamin B Complex 1 tab PO DAILY 06/16/18 predniSONE [Prednisone] 12.5 mg PO [id number] 06/16/18 Allergies/Adverse Reactions: Allergies Allergy/AdvReac Type Severity Reaction Status Date / Time Penicillins Allergy Intermediate Anaphylaxis Verified 06/16/18 08:57 Anes History & Medical History - Anesthetic History Anesthesia Complications: reports: No previous complications Family history of Anesthesia Complications: Denies Family history of Malignant Hyperthermia: Denies - Medical History Cardiovascular: reports: Hypertension, High cholesterol Pulmonary: reports: None Gastrointestinal: reports: None Urinary: reports: None Neuro: reports: None Musculoskeletal: reports: None Endocrine/Autoimmune: reports: None Blood Disorders: reports: None Skin: reports: None Smoking Status: Never smoker - Surgical History General: Other Orthopedic: Other Other Past Surgical History: trigger finger repair Exam General: Alert, Oriented x3, Cooperative, No acute distress Dental: WNL Mouth Openin Fingerbreadth Neck Mobility: Normal Mallampati classification: III Respiratory: Lungs clear, Normal breath sounds, No respiratory distress Cardiovascular: Regular rate Neurological: Normal speech Mental/Cognitive Status: Alert/Oriented X3 Cognitive Status: Within normal limits Plan Anesthesia Type: General Consent for Procedure(s) Verified and Reviewed: Yes Code Status: Attempt Resuscitation ASA classification: 2-Mild systemic disease Is this case an emergency?: No
[2018-06-17] MEDS ORDERED: BUPIVACAINE 0.25% PF 30 ML VIAL ONE (07:22)
[2018-06-17] MEDS ORDERED: PROPOFOL 200 MG/20 ML VIAL IVP ONE (07:30)
[2018-06-17] MEDS ORDERED: ONDANSETRON 4 MG/2 ML VIAL IVP ONE (07:30)
[2018-06-17] MEDS ORDERED: PHENYLEPHRINE 50 MG/5 ML VIAL IV ONE (07:30)
[2018-06-17] MEDS ORDERED: ACETAMINOPHEN 1,000 MG/100 ML 100 ML IV ONE (07:30)
[2018-06-17] MEDS ORDERED: ePHEDrine 50 MG/ML VIAL IVP ONE (07:30)
[2018-06-17] MEDS ORDERED: MIDAZOLAM 2 MG/2 ML VIAL IVP ONE (07:30)
[2018-06-17] MEDS ORDERED: fentaNYL 100 MCG/2 ML VIAL IVP ONE (07:30)
[2018-06-17] MEDS ORDERED: LIDOCAINE-MPF 2% 5 ML VIAL IM ONE (07:30)
[2018-06-17] MEDS ORDERED: DEXAMETHASONE 4 MG/ML VIAL IVP ONE (07:30)
[2018-06-17] MEDS ORDERED: LACTATED RINGERS 1,000 ML IV ONE ×3 (07:35→08:18)
[2018-06-17] MEDS ORDERED: SODIUM CHLORIDE 0.9% 1,000 ML IV ONE (07:35)
[2018-06-17] MEDS: SODIUM CHLORIDE FLUSH 0.9% 10 ML SYRINGE IVP SCH ×2 (07:38→16:31)
[2018-06-17] MEDS ORDERED: CLINDAMYCIN 600 MG/50 ML 100 ML IV ONE (07:50)
[2018-06-17] MEDS ORDERED: CLINDAMYCIN 900 MG/50 ML 50 ML IV SCH (08:00)
[2018-06-17] MEDS ORDERED: BUPIVACAINE 0.25%-EPI 1:200000 PF 30 ML VIAL SUBQ ONE (08:17)
[2018-06-17] MEDS ORDERED: BUPIVACAINE 0.25%-EPI 1:200000 PF 30 ML VIAL ONE (08:17)
[2018-06-17] MEDS ORDERED: POLYETHYLENE GLYCOL 3350 17 GM PACKET PO SCH ×2 (09:00)
--- NOTE | 2018-06-17 09:52 | OPERATIVE REPORT ---
Operative Report - General Admit Date: 06/16/18 Procedure Date: 06/17/18 Planned Procedure: ORIF right ankle fracture Pre-Op Diagnosis: Unstable right ankle fracture Procedure Performed: ORIF of right ankle fracture Post Op Diagnosis: Same - Procedure Note Primary Surgeon: Mansi Shafer MD Anesthesia Provider: Richard Dc CRNA Anesthesia Technique: General LMA IV Fluids (mL): 1,000 Estimated Blood Loss (mL): 50 Complications: None
[2018-06-17] MEDS ORDERED: oxyCODONE 5 MG TABLET PO PRN (09:53)
[2018-06-17] MEDS ORDERED: DOCUSATE SODIUM 100 MG CAPSULE PO PRN (09:53)
[2018-06-17] MEDS ORDERED: ONDANSETRON 4 MG/2 ML VIAL IVP PRN (09:53)
[2018-06-17] MEDS ORDERED: SODIUM CHLORIDE FLUSH 0.9% 10 ML SYRINGE IVP PRN (09:53)
[2018-06-17] MEDS ORDERED: ACETAMINOPHEN 325 MG TABLET PO PRN (09:53)
[2018-06-17] MEDS ORDERED: SENNA 8.6 MG TABLET PO PRN (09:53)
[2018-06-17] MEDS ORDERED: MORPHINE 2 MG/ML CARPUJECT IVP PRN (09:53)
[2018-06-17] MEDS ORDERED: PROCHLORPERAZINE 10 MG/2 ML VIAL IVP PRN (09:53)
[2018-06-17] MEDS ORDERED: fentaNYL 100 MCG/2 ML VIAL ONE (09:59)
--- NOTE | 2018-06-17 10:36 | OPERATIVE REPORT ---
DATE OF SERVICE: 06/17/2018 Physician: Amaury Shafer MD PREOPERATIVE DIAGNOSIS: Closed, unstable right ankle fracture. POSTOPERATIVE DIAGNOSIS: Closed, unstable right ankle fracture. PROCEDURE PERFORMED: Open reduction and internal fixation of right ankle fracture. SURGEON: Amaury Shafer MD. ANESTHESIA: General. DESCRIPTION OF PROCEDURE: The patient was taken to the operating room on the morning of 06/17/2018, where she was placed under a general anesthetic without any complications. We applied the thigh pneu matic tourniquet to the right lower extremity, though it was not inflated during the case. We also p laced a sandbag bump underneath her right hip. We then prepped and draped the right leg free in the usual fashion for our procedure. Making a longitudinal posterolateral skin incision over the lateral aspect of the ankle, we dissected down to the fracture. Periosteal elevator was used to remove the periosteum about the fracture edge of both proximal and distal fragments. Curette was used to remove the fracture hematoma between the fracture surfaces. With gentle traction and minimal manipulation, we were able to bring the fracture out to length and hold it in reduction with a towel clip reductio n clamp. Fluoroscopic view confirmed the reduction of our fracture laterally. The proper length per iarticular locking distal fibular plate was then selected from the tray. This was placed along the l ateral aspect of the distal fibular shaft. Prior to applying the plate, however, we did put an inter fragmentary screw across the fracture. This was done with standard AO technique, utilizing a 2.7-mm drill to cross the drill across our reduced fracture. The selected 3.5-mm cortical screw was then in serted through the hole, providing provisional fixation of our fracture. Again, at this point, we ap plied the selected locking plate along the posterolateral aspect of the fibular shaft and distal fibu la. We then proceeded to fill the proximal 4 holes with the appropriate length 3.5-mm locking cortic al screws, using standard technique. The distal 4 screws were also used, of the appropriate length, 3-5 mm locking screws, to hold the distal fragment. Fluoroscopic views showed good reduction of our fracture. Next, we made a longitudinal skin incision over the medial malleolar fragment of our fracture Dissec ting down to the fracture, we then used a periosteal elevator to remove the periosteum from the proxi mal and distal fragment at the fracture edge. Curette was used to remove the fracture hematoma. We then irrigated the fracture and the joint with approximately 200 mL of irrigation solution. We then reduced the fracture with towel clip reduction clamps, holding in place with a second towel clip redu ction clamp. Fluoroscopic views showed a good reduction of our fracture. We then used the threaded- tip guidewire from the 4.0 cannulated screw set to drive across the fracture, holding it in a reduced position. Direct measuring guide indicated we would use two 34-mm length short-threaded 4.0 cannula astrid cancellous screws. Perforated the medial tibial cortex with a cannulated screw drill from the se t. This was then followed by the selected cannulated 4.0-mm screws. We obtained good compression ac ross the fracture. Pins were then removed. We then inspected the ankle. Both the lateral and media l components of the fracture were reduced. What was thought to be a posterior malleolar fragment was not visible, as if there was no posterior medial component as we thought preoperatively, on these in traoperative x-rays. We then noticed slight widening of the ankle mortise medially with the ankle in a neutral position. We determined at this point that we would put a syndesmotic screw across the di stal tibia-fibula joint. Putting the ankle in a neutral position, we then used a towel clip reduction clamp to reduce the mini mal gapping of the ankle mortise that was seen previously. Fluoroscopic views with the reduction cla mp in place showed the ankle mortise to be satisfactory. We then proceeded to insert a 4.5-mm cortic al screw across the distal tibiofibular joint, using standard technique. After applying the screw, aicha cervantes again removed reduction clamp and obtained views of our ankle, showing a good reduction of our frac ture. The ankle mortise re-established in satisfactory placement of our hardware. Pictures were the n obtained. We then irrigated the wounds thoroughly with saline. We then closed the wound in layers using buried simple stitches of 2-0 Vicryl to approximate the subcutaneous tissues, followed by skin ernst to approximate the skin edges. Washed the wounds. Applied Xeroform gauze, 4 x 4's, sterile Webril, and a short leg posterior splint with stirrups applied to the lower extremity. The patient was then awoken from her anesthesia and taken to the recovery room in satisfactory condition. ESTIMATED BLOOD LOSS: 50 mL. REPLACEMENT: 1000 mL of crystalloid. INTRAOPERATIVE COMPLICATIONS: None. TOURNIQUET TIME: None. PLAN: The patient will be nonweightbearing for the next 4-6 weeks. We will need to consider possibl y removing her syndesmotic screw prior to her going full weightbearing on this extremity. TD: 06/17/2018 10:16
--- NOTE | 2018-06-17 11:07 | XRAY Report ---
Reason: post op ORIF of ankle fracture Procedure Date: 06/17/2018 Accession Number: [id number] / [id number] Procedure: XR - Ankle 3 View RT CPT Code: FULL RESULT: EXAM: RIGHT ANKLE RADIOGRAPHY EXAM DATE: 06/17/2018 10:23 AM. CLINICAL HISTORY: Post op ORIF of ankle fracture. COMPARISON: Ankle 2 view right 06/16/2018 12:53 PM. TECHNIQUE: 3 views. FINDINGS: Interval surgical fixation of a distal fibular fracture with lateral plate and screw including one fragment screw and one trans-syndesmotic screw as well as operative fixation of a medial malleolar fracture by 2 threaded partially cannulated screws. Cast material obscures fine bone detail. Alignment is satisfactory. IMPRESSION: Interval ORIF, satisfactory alignment. RADIA
[2018-06-17] MEDS: predniSONE 5 MG TABLET PO SCH (14:56)
[2018-06-17] MEDS: POLYETHYLENE GLYCOL 3350 17 GM PACKET PO SCH (16:29)
[2018-06-17] MEDS: CLINDAMYCIN 600 MG/50 ML 50 ML IV SCH ×2 (16:29→23:43)
[2018-06-17] MEDS: ASPIRIN 325 MG TABLET PO SCH (16:30)
--- NOTE | 2018-06-17 17:17 | PROVIDER PROGRESS NOTE ---
Subjective - Prog Note Date Prog Note Date: 06/17/18 Prog Note Time: 12:00 - Subjective Pt reports feeling: Improved Subjective: Christine states that her pain is fairly controlled and is looking forward to getting up with PT tomorrow. She stated her Prednisone schedule as per her PCP recommendations. She denies any new symptoms such as shortness of breath, chest pain, rashes, nausea, vomiting, or a new cough. Current Medications - Current Medications Current Medications: Active Medications Acetaminophen (Tylenol) 650 - 975 mg PO Q4HR PRN PRN Reason: PAIN Aspirin (Leilani) 325 mg PO BIDWM [facility] Last Admin: 06/17/18 16:30 Dose: 325 mg Docusate Sodium (Colace 100mg Capsule) 100 mg PO BID PRN PRN Reason: Constipation Clindamycin Phosphate (Cleocin 600 Mg/50 Ml) 50 mls @ 100 mls/hr IV Q8H [facility] Stop: 06/18/18 00:29 Last Infusion: 06/17/18 17:15 Dose: Infused Acetaminophen (Ofirmev) 100 mls @ 400 mls/hr IV Q6HR PRN PRN Reason: PAIN Sodium Chloride (Normal Saline 0.9%) 1,000 mls @ 100 mls/hr IV .Q10H [facility] Last Admin: 06/17/18 11:06 Dose: 100 mls/hr Morphine Sulfate (Morphine (Carpuject)) 2 mg IVP Q2HR PRN PRN Reason: PAIN Ondansetron HCl (Zofran Inj) 4 mg IVP Q6HR PRN PRN Reason: Nausea / Vomiting Oxycodone HCl (Roxicodone) 5 mg PO Q4HR PRN PRN Reason: PAIN Pantoprazole Sodium (Protonix) 40 mg IVP QDAC [facility] Last Admin: 06/17/18 06:45 Dose: 40 mg Polyethylene Glycol (Miralax) 17 gm PO 1700 [facility] Last Admin: 06/17/18 16:29 Dose: 17 gm Prednisone (Deltasone) 10 mg PO DAILY [facility] Stop: 06/29/18 09:01 Prednisone (Deltasone) 12.5 mg PO DAILY [facility] Stop: 06/19/18 09:01 Last Admin: 06/17/18 14:56 Dose: 12.5 mg Prochlorperazine Edisylate (Compazine Inj) 10 mg IVP Q6HR PRN PRN Reason: Nausea / Vomiting Senna (Senokot) 17.2 mg PO Q12H PRN PRN Reason: Constipation Sodium Chloride (Normal Saline Flush 0.9%) 10 ml IVP 0100,0900,1700 [facility] Last Admin: 06/17/18 16:31 Dose: Not Given Sodium Chloride (Normal Saline Flush 0.9%) 10 ml IVP PRN PRN PRN Reason: NEEDED PER PROVIDER ORDERS Temazepam (Restoril) 7.5 mg PO QPM [facility] Last Admin: 06/16/18 20:49 Dose: 7.5 mg Aspirin 162 mg PO DAILY 06/16/18 Atorvastatin Calcium 80 mg PO QPM 06/16/18 Calcium Carbonate/Vitamin D3 [Calcium 500-Vit D3 600 Caplet] 1 tab PO DAILY 06/16/18 Losartan [Cozaar] 75 mg PO DAILY 06/16/18 Multivitamin [Theragran] 1 tab PO DAILY 06/16/18 Gilmer-3 Acid Ethyl Esters [Lovaza] 1 gm PO DAILY 06/16/18 Omeprazole 20 mg PO QDAC 06/16/18 Polyethylene Glycol 3350 17 gm PO QPM 06/16/18 Prednisone 10 mg PO [id number] 06/16/18 Vitamin B Complex 1 tab PO DAILY 06/16/18 predniSONE [Prednisone] 12.5 mg PO [id number] 06/16/18 Objective - Vital Signs/Intake & Output Reviewed Vital Signs: Yes Vital Signs: Vital Signs x48h Temp Pulse Pulse Pulse Resp Resp BP 06/17/18 15:41 36.5 C 87 16 06/17/18 13:33 71 16 06/17/18 13:30 71 16 06/17/18 13:20 36.3 C L 95 16 06/17/18 12:20 36.4 C L 88 16 06/17/18 11:18 36.2 C L 89 18 06/17/18 10:40 36.0 C L 93 92 18 137/89 H 06/17/18 10:33 36.2 C L 85 17 137/89 H 06/17/18 10:22 36.3 C L 98 16 135/81 H 06/17/18 10:09 36.2 C L 88 16 138/81 H 06/17/18 10:02 36.0 C L 102 H 18 149/81 H 06/17/18 09:53 36.2 C L 101 H 18 157/93 H 06/17/18 09:47 36.3 C L 97 15 138/82 H BP BP BP Pulse Ox Pulse Ox 06/17/18 15:41 131/71 H 97 06/17/18 13:33 124/67 97 06/17/18 13:30 124/67 97 06/17/18 13:20 142/86 H 97 06/17/18 12:20 115/65 95 06/17/18 11:18 117/71 96 06/17/18 10:40 126/80 99 06/17/18 10:33 97 06/17/18 10:22 94 06/17/18 10:09 99 06/17/18 10:02 100 06/17/18 09:53 98 06/17/18 09:47 100 Intake & Output: Intake & Output 06/14/18 06/15/18 06/16/18 06/17/18 23:59 23:59 23:59 23:59 Intake Total 666.25 1933.051 Output Total 400 200 Balance 266.25 1733.051 - Objective General Appearance: positive: No acute distress, Alert Eyes Bilateral: positive: PERRL, No lid inflammation ENT: positive: ENT inspection nml, Pharynx nml, No signs of dehydration Neck: positive: Nml inspection, No JVD, Trachea midline Respiratory: positive: Chest non-tender, No respiratory distress, Breath sounds nml Cardiovascular: positive: Regular rate & rhythm, No gallop, Systolic murmur Peripheral Pulses: 1+ Radial (R), 1+ Radial (L), 1+ Popliteal (R), 1+ Popliteal (L) Abdomen: positive: Non-tender, Nml bowel sounds Back: positive: Nml inspection Skin: positive: No rash, Warm, Dry Extremities: positive: Pedal edema, Joint swelling, Other (RLE no drainage, edema greater than LLE.) Neurologic/Psychiatric: positive: Oriented x3, CN's nml (2-12), Motor nml, Sensation nml, Mood/affect nml Reflexes: Bicep (R): 3+, Bicep (L): 3+ - Lab Results Fish Bones: 06/17/18 05:34 06/17/18 05:34 Other Labs: Lab Results x24hrs 06/17/18 06/17/18 06/17/18 Range/Units 05:34 05:34 05:34 WBC (4.8-10.8) x10^3/uL RBC (4.20-5.40) 10^6/uL Hgb (12.0-16.0) g/dL Hct (37.0-47.0) % MCV (81.0-99.0) fL MCH (27.0-31.0) pg MCHC (32.0-36.0) g/dL RDW (12.0-15.0) % Plt Count (130-450) 10^3/uL MPV (7.9-10.8) fL Neut # (Auto) (1.5-6.6) 10^3/uL Lymph # (Auto) (1.5-3.5) 10^3/uL [place] # (Auto) (0.0-1.0) 10^3/uL Eos # (Auto) (0.0-0.7) 10^3/uL Baso # (Auto) (0.0-0.1) 10^3/uL Absolute Nucleated RBC x10^3/uL Nucleated RBC % /100WBC PT (9.9-12.6) secs INR (0.8-1.2) APTT (24.9-33.3) secs Sodium 135 (135-145) mmol/L Potassium 4.3 (3.5-5.0) mmol/L Chloride 101 (101-111) mmol/L Carbon Dioxide 24 (21-32) mmol/L Anion Gap 10.0 (6-13) BUN 23 H (6-20) mg/dL Creatinine 1.1 H (0.4-1.0) mg/dL Estimated GFR (MDRD) 48 L (>89) Glucose 128 H (70-100) mg/dL Glycated Hemoglobin 5.9 (4.6-6.2) % Estim Average Glucose 123 H (70-100) Calcium 8.7 (8.5-10.3) mg/dL Phosphorus 3.2 (2.5-4.6) mg/dL Magnesium 1.9 (1.7-2.8) mg/dL Total Bilirubin 0.9 (0.2-1.0) mg/dL AST 26 (10-42) IU/L ALT 26 (10-60) IU/L Alkaline Phosphatase 71 (42-121) IU/L Total Protein 6.6 L (6.7-8.2) g/dL Albumin 3.7 (3.2-5.5) g/dL Globulin 2.9 (2.1-4.2) g/dL Albumin/Globulin Ratio 1.3 (1.0-2.2) Amylase 77 (28-100) U/L Lipase 28 (22-51) U/L TSH 2.45 (0.34-5.60) uIU/mL 06/17/18 06/17/18 06/16/18 Range/Units 05:34 05:34 09:17 WBC 8.8 (4.8-10.8) x10^3/uL RBC 3.42 L (4.20-5.40) 10^6/uL Hgb 10.7 L (12.0-16.0) g/dL Hct 31.4 L (37.0-47.0) % MCV 91.7 (81.0-99.0) fL MCH 31.4 H (27.0-31.0) pg MCHC 34.2 (32.0-36.0) g/dL RDW 14.8 (12.0-15.0) % Plt Count 226 (130-450) 10^3/uL MPV 6.4 L (7.9-10.8) fL Neut # (Auto) 6.2 (1.5-6.6) 10^3/uL Lymph # (Auto) 1.5 (1.5-3.5) 10^3/uL [place] # (Auto) 0.9 (0.0-1.0) 10^3/uL Eos # (Auto) 0.2 (0.0-0.7) 10^3/uL Baso # (Auto) 0.0 (0.0-0.1) 10^3/uL Absolute Nucleated RBC 0.00 x10^3/uL Nucleated RBC % 0.0 /100WBC PT 11.5 (9.9-12.6) secs INR 1.0 (0.8-1.2) APTT 22.1 L (24.9-33.3) secs Sodium 138 (135-145) mmol/L Potassium (3.5-5.0) mmol/L Chloride (101-111) mmol/L Carbon Dioxide (21-32) mmol/L Anion Gap 15.0 H (6-13) BUN (6-20) mg/dL Creatinine (0.4-1.0) mg/dL Estimated GFR (MDRD) (>89) Glucose (70-100) mg/dL Glycated Hemoglobin (4.6-6.2) % Estim Average Glucose (70-100) Calcium (8.5-10.3) mg/dL Phosphorus (2.5-4.6) mg/dL Magnesium (1.7-2.8) mg/dL Total Bilirubin (0.2-1.0) mg/dL AST (10-42) IU/L ALT (10-60) IU/L Alkaline Phosphatase (42-121) IU/L Total Protein (6.7-8.2) g/dL Albumin (3.2-5.5) g/dL Globulin (2.1-4.2) g/dL Albumin/Globulin Ratio (1.0-2.2) Amylase (28-100) U/L Lipase (22-51) U/L TSH (0.34-5.60) uIU/mL ABX Reporting Has patient been on IV antibiotics over the past 48 hours?: Yes Assessment/Plan - Problem List (1) Post-operative pain Impression: Since her surgery, the patient has been in bed and has not complained of pain. She has been prescribed oxycodone and tylenol. Plan: continue to treat pain and start daily PT in the AM. (2) Syncope and collapse Impression: The patient describes this episode that occurred around 7AM when she was alone in her kitchen, felt dizzy, slowly slid to the floor, had her cell phone in her pocket and called her who was in the next building. The story then becomes unclear as she claims she does not remember, although believes that she crawled into the bathroom. When he arrived, she appeared lethargic, so her attempted to lift her to her feet, but she seemed to loose consciousness, so he lowered her back down to the floor. She started to wake up, so he again attempted to get her on her feet, but the same thing happened, where she went limp and seemed to loose consciousness. 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 Carotid dopplers show mild right and moderate left common and internal carotid artery atheromatous plaque with less than 50% stenosis. Preliminary Echo results show a normal EF of 65-70%, grade 1 diastolic dysfunction. Plan: Continue care, physical therapy in the AM, d/c Losartan and start Metoprolol succinate 25mg daily to prevent further syncope. (3) Closed right ankle fracture Impression: The patient has a confirmed right ankle fracture on imaging that notes a bimalleolar fracture. She underwent surgical repair today with Dr. Shafer without known post-op complications. Plan: Continue care, treat pain and daily PT starting in the AM. Qualifiers: Encounter type: initial encounter Qualified Code(s): S82.891A - Other fracture of right lower leg, initial encounter for closed fracture (4) Fall Impression: The patient admits to a recent previous fall that was similar to this event and she sustained a chest wall contusion. This is resolved. For this fall, she had a brief warning, and soon slumped to the floor, but believes that she remained conscious until her attempted to stand her multiple times. Her preliminary syncope work up concludes that she had intra-vascular depletion at the time of her fall, and she has been on a moderate dose ARB, which may have made this worse. She is also noted to have grade 1 diastolic dysfunction. Plan: Continue fall precautions and change Losartan to metoprolol. Qualifiers: Encounter type: subsequent encounter Qualified Code(s): W19.XXXD - Unspecified fall, subsequent encounter (5) JAYLEN (acute kidney injury) Impression: The patient denies any history of kidney disease, is not diabetic and claims that she has never had any urinary problems. She is found to have an elevated creatinine of 1.1 upon admission, which remained unchanged today despite gentle IV fluids, with an unknown baseline creatinine. Her current GFR is reduced at 48. Plan: Monitor daily labs and avoid nephrotoxins. (6) Polymyalgia rheumatica Impression: The patient has been on a steroid taper as per her PCP for this condition. She finds that her bilateral thighs are weak at times and she has generalized fatigue. Records from her last PCP office visit have been reviewed; Her original symptoms of UE myalgias has improved since starting her on prednisone. In addition to this complication she has had an eye infection and oral ulcers with a question of her also having Sjogren's syndrome. The patient complains of "always being thirsty", and having dry eyes. She has requested that her steroid taper be continued as usual, so I have resumed this. Plan: Continue steroids, and monitor for symptoms. Encourage good oral intake and refresh eye drops, PRN. (7) Essential hypertension Impression: The patient is prescribed Losartan at home, but during her intensive syncope and collapse work up, it has been determined that this choice of medication may have contributed to her original fall. A recent adjustment was made going from a dose of 50 to 100, then back to 75mg. This is now discontinued and she has been started on metoprolol succinate at 25mg PO daily. Plan: Continue to monitor vital signs and start Metoprolol.
[2018-06-17] MEDS ORDERED: CARBOXYMETHYLCELLULOSE OPHTH DROPS EACHEYE PRN (18:50)
[2018-06-17] MEDS: CHOLECALCIFEROL 400 UNIT TABLET PO SCH (19:25)
[2018-06-17] MEDS: ACETAMINOPHEN 1,000 MG/100 ML 100 ML IV PRN (19:25)
[2018-06-17] MEDS: CALCIUM CARB (OYSTER SHELL) 500 MG TABLET PO SCH (19:25)
[2018-06-17] MEDS: ATORVASTATIN 40 MG TABLET PO SCH (21:07)
[2018-06-18 05:15] LABS: BASOPHILS # (AUTO) 0.1 10^3/uL (0.0-0.1); BASOPHILS % (AUTO) 1.4 %; EOSINOPHILS % (AUTO) 0.1 %; LYMPHOCYTES # (AUTO) 0.5 10^3/uL (1.5-3.5); LYMPHOCYTES % (AUTO) 5.5 %; MEAN CORPUSCULAR HEMOGLOBIN 31.4 pg (27.0-31.0); MEAN CORPUSCULAR HGB CONC 34.3 g/dL (32.0-36.0); MEAN CORPUSCULAR VOLUME 91.5 fL (81.0-99.0); MEAN PLATELET VOLUME 6.8 fL (7.9-10.8); MONOCYTES # (AUTO) 0.8 10^3/uL (0.0-1.0); NEUTROPHILS # (AUTO) 8.3 10^3/uL (1.5-6.6); PLT - PLATELET COUNT 181 10^3/uL (130-450); RED BLOOD COUNT 2.87 10^6/uL (4.20-5.40); RED CELL DISTRIBUTION WIDTH 14.5 % (12.0-15.0); WHITE BLOOD COUNT 9.8 x10^3/uL (4.8-10.8)
[2018-06-18] MEDS: ACETAMINOPHEN 1,000 MG/100 ML 100 ML IV PRN (05:15)
[2018-06-18 05:23] LABS: ALBUMIN 3.2 g/dL (3.2-5.5); ALBUMIN/GLOBULIN RATIO 1.1 (1.0-2.2); BILIRUBIN,TOTAL 0.7 mg/dL (0.2-1.0); CALCIUM 8.7 mg/dL (8.5-10.3); CREATININE 1.1 mg/dL (0.4-1.0); TOTAL PROTEIN 6.1 g/dL (6.7-8.2)
[2018-06-18] MEDS: PANTOPRAZOLE 40 MG VIAL IVP SCH (06:53)
[2018-06-18] MEDS: SODIUM CHLORIDE FLUSH 0.9% 10 ML SYRINGE IVP SCH ×3 (06:55→16:11)
[2018-06-18] MEDS: ASPIRIN 325 MG TABLET PO SCH ×2 (08:14→16:11)
[2018-06-18] MEDS: METOPROLOL SUCCINATE 25 MG TABLET PO SCH (08:16)
[2018-06-18] MEDS: CHOLECALCIFEROL 400 UNIT TABLET PO SCH (08:16)
[2018-06-18] MEDS: SODIUM CHLORIDE 0.9% 1,000 ML IV SCH ×2 (08:16→18:39)
[2018-06-18] MEDS: predniSONE 5 MG TABLET PO SCH (08:16)
[2018-06-18] MEDS: CALCIUM CARB (OYSTER SHELL) 500 MG TABLET PO SCH (08:16)
--- NOTE | 2018-06-18 09:43 | PROVIDER PROGRESS NOTE ---
Subjective - Prog Note Date Prog Note Date: 06/18/18 Prog Note Time: 09:40 - Subjective Pt reports feeling: Improved (Usual post op pain.) Objective - Vital Signs/Intake & Output Vital Signs: Vital Signs x48h Temp Pulse Resp BP Pulse Ox 06/18/18 07:47 36.6 C 79 18 129/80 94 06/18/18 04:00 36.7 C 93 18 147/81 H 95 Intake & Output: Intake & Output 06/15/18 06/16/18 06/17/18 06/18/18 23:59 23:59 23:59 23:59 Intake Total 666.25 3453.051 1390.000 Output Total 400 1000 1350 Balance 266.25 2453.051 40.000 - Lab Results Fish Bones: 06/18/18 04:15 06/18/18 04:15 Other Labs: Lab Results x24hrs 06/18/18 06/18/18 Range/Units 04:15 04:15 WBC 9.8 (4.8-10.8) x10^3/uL RBC 2.87 L (4.20-5.40) 10^6/uL Hgb 9.0 L (12.0-16.0) g/dL Hct 26.3 L (37.0-47.0) % MCV 91.5 (81.0-99.0) fL MCH 31.4 H (27.0-31.0) pg MCHC 34.3 (32.0-36.0) g/dL RDW 14.5 (12.0-15.0) % Plt Count 181 (130-450) 10^3/uL MPV 6.8 L (7.9-10.8) fL Neut # (Auto) 8.3 H (1.5-6.6) 10^3/uL Lymph # (Auto) 0.5 L (1.5-3.5) 10^3/uL [place] # (Auto) 0.8 (0.0-1.0) 10^3/uL Eos # (Auto) 0.0 (0.0-0.7) 10^3/uL Baso # (Auto) 0.1 (0.0-0.1) 10^3/uL Absolute Nucleated RBC 0.00 x10^3/uL Nucleated RBC % 0.0 /100WBC Sodium 139 (135-145) mmol/L Potassium 4.7 (3.5-5.0) mmol/L Chloride 108 (101-111) mmol/L Carbon Dioxide 24 (21-32) mmol/L Anion Gap 7.0 (6-13) BUN 21 H (6-20) mg/dL Creatinine 1.1 H (0.4-1.0) mg/dL Estimated GFR (MDRD) 48 L (>89) Glucose 129 H (70-100) mg/dL Calcium 8.7 (8.5-10.3) mg/dL Total Bilirubin 0.7 (0.2-1.0) mg/dL AST 22 (10-42) IU/L ALT 22 (10-60) IU/L Alkaline Phosphatase 57 (42-121) IU/L Total Protein 6.1 L (6.7-8.2) g/dL Albumin 3.2 (3.2-5.5) g/dL Globulin 2.9 (2.1-4.2) g/dL Albumin/Globulin Ratio 1.1 (1.0-2.2) - Other Results/Comments Other Results/Comments: EXAM: Splint ok. Moves toes well. Sensation intact. Good cap filling Assessment/Plan - Problem List (1) Closed right ankle fracture Impression: Satis post op PLAN: Mobilize as tolerated. Depending on progress in PT, will either go to SNF for post op rehab vs home with home PT. ?consider a kneeling scooter to keep her NWB on right side. Follow up in Orthopedic clinic in 2 weeks vvs local follow up in [place], should she choose to head [place] within 2 weeks. Qualifiers: Encounter type: initial encounter Qualified Code(s): S82.891A - Other fracture of right lower leg, initial encounter for closed fracture
--- NOTE | 2018-06-18 13:29 | PROVIDER PROGRESS NOTE ---
Subjective - Prog Note Date Prog Note Date: 06/18/18 Prog Note Time: 13:28 - Subjective Pt reports feeling: Improved Subjective: Christine requests a tri-pod type walking device to allow for free movement as she needs to be non-weight bearing to her right foot for her healing time of the next several weeks to months. She denies any dizziness, palpitations, chest pain, nausea, vomiting or a new cough. She states that she is a little behind schedule with her bowels. Current Medications - Current Medications Current Medications: Active Medications Acetaminophen (Tylenol) 650 - 975 mg PO Q4HR PRN PRN Reason: PAIN Aspirin (Leilani) 325 mg PO BIDWM PENDING SALE TO [facility] Last Admin: 06/18/18 08:14 Dose: 325 mg Atorvastatin Calcium (Lipitor) 80 mg PO QPM PENDING SALE TO [facility] Last Admin: 06/17/18 21:07 Dose: 80 mg Calcium Carbonate/Glycine (Oysco-500) 500 mg PO DAILY PENDING SALE TO [facility] Last Admin: 06/18/18 08:16 Dose: 500 mg Carboxymethylcellulose (Refresh 1% Ophth Drops) 1 drops EACHEYE Q4HR PRN PRN Reason: Dry Eye Cholecalciferol (Vitamin D3) 400 unit PO DAILY PENDING SALE TO [facility] Last Admin: 06/18/18 08:16 Dose: 400 unit Docusate Sodium (Colace 100mg Capsule) 100 mg PO BID PRN PRN Reason: Constipation Acetaminophen (Ofirmev) 100 mls @ 400 mls/hr IV Q6HR PRN PRN Reason: PAIN Last Infusion: 06/18/18 05:30 Dose: Infused Sodium Chloride (Normal Saline 0.9%) 1,000 mls @ 100 mls/hr IV .Q10H PENDING SALE TO [facility] Last Admin: 06/18/18 08:16 Dose: 100 mls/hr Metoprolol Succinate (Toprol Xl) 25 mg PO DAILY PENDING SALE TO [facility] Last Admin: 06/18/18 08:16 Dose: 25 mg Morphine Sulfate (Morphine (Carpuject)) 2 mg IVP Q2HR PRN PRN Reason: PAIN Ondansetron HCl (Zofran Inj) 4 mg IVP Q6HR PRN PRN Reason: Nausea / Vomiting Oxycodone HCl (Roxicodone) 5 mg PO Q4HR PRN PRN Reason: PAIN Pantoprazole Sodium (Protonix) 40 mg IVP QDAC PENDING SALE TO [facility] Last Admin: 06/18/18 06:53 Dose: 40 mg Polyethylene Glycol (Miralax) 17 gm PO 1700 PENDING SALE TO [facility] Last Admin: 06/17/18 16:29 Dose: 17 gm Prednisone (Deltasone) 10 mg PO DAILY PENDING SALE TO [facility] Stop: 06/29/18 09:01 Prednisone (Deltasone) 12.5 mg PO DAILY PENDING SALE TO [facility] Stop: 06/19/18 09:01 Last Admin: 06/18/18 08:16 Dose: 12.5 mg Prochlorperazine Edisylate (Compazine Inj) 10 mg IVP Q6HR PRN PRN Reason: Nausea / Vomiting Senna (Senokot) 17.2 mg PO Q12H PRN PRN Reason: Constipation Sodium Chloride (Normal Saline Flush 0.9%) 10 ml IVP 0100,0900,1700 PENDING SALE TO [facility] Last Admin: 06/18/18 08:18 Dose: Not Given Sodium Chloride (Normal Saline Flush 0.9%) 10 ml IVP PRN PRN PRN Reason: NEEDED PER PROVIDER ORDERS Temazepam (Restoril) 7.5 mg PO QPM PENDING SALE TO [facility] Last Admin: 06/18/18 00:00 Dose: Not Given Aspirin 162 mg PO DAILY 06/16/18 Atorvastatin Calcium 80 mg PO QPM 06/16/18 Calcium Carbonate/Vitamin D3 [Calcium 500-Vit D3 600 Caplet] 1 tab PO DAILY 06/16/18 Multivitamin [Theragran] 1 tab PO DAILY 06/16/18 [place]-3 Acid Ethyl Esters [Lovaza] 1 gm PO DAILY 06/16/18 Omeprazole 20 mg PO QDAC 06/16/18 Polyethylene Glycol 3350 17 gm PO QPM 06/16/18 Prednisone 10 mg PO [id number] 06/16/18 Vitamin B Complex 1 tab PO DAILY 06/16/18 predniSONE [Prednisone] 12.5 mg PO [id number] 06/16/18 Objective - Vital Signs/Intake & Output Reviewed Vital Signs: Yes Vital Signs: Vital Signs x48h Temp Pulse Resp BP Pulse Ox 06/18/18 12:27 36.8 C 78 18 139/75 H 95 06/18/18 07:47 36.6 C 79 18 129/80 94 Intake & Output: Intake & Output 06/15/18 06/16/18 06/17/18 06/18/18 23:59 23:59 23:59 23:59 Intake Total 666.25 3453.051 1630.000 Output Total 400 1000 1350 Balance 266.25 2453.051 280.000 - Objective General Appearance: positive: No acute distress, Alert Eyes Bilateral: positive: No lid inflammation Eyes: OU Conjunctivae pale ENT: positive: Pharynx nml, No signs of dehydration Neck: positive: Nml inspection, Thyroid nml, No JVD, Trachea midline Respiratory: positive: Chest non-tender, No respiratory distress, Breath sounds nml Cardiovascular: positive: Regular rate & rhythm, No gallop, Systolic murmur Peripheral Pulses: 1+ Radial (R), 1+ Radial (L) Abdomen: positive: Non-tender, Nml bowel sounds Back: positive: Nml inspection Skin: positive: Color nml, No rash, Warm, Dry Extremities: positive: Pedal edema, Joint swelling (right ankle post op swelling) Neurologic/Psychiatric: positive: Oriented x3, CN's nml (2-12), Motor nml, Sensation nml, Mood/affect nml Reflexes: Bicep (R): 3+, Bicep (L): 3+ - Lab Results Fish Bones: 06/18/18 04:15 06/18/18 04:15 Other Labs: Lab Results x24hrs 06/18/18 06/18/18 Range/Units 04:15 04:15 WBC 9.8 (4.8-10.8) x10^3/uL RBC 2.87 L (4.20-5.40) 10^6/uL Hgb 9.0 L (12.0-16.0) g/dL Hct 26.3 L (37.0-47.0) % MCV 91.5 (81.0-99.0) fL MCH 31.4 H (27.0-31.0) pg MCHC 34.3 (32.0-36.0) g/dL RDW 14.5 (12.0-15.0) % Plt Count 181 (130-450) 10^3/uL MPV 6.8 L (7.9-10.8) fL Neut # (Auto) 8.3 H (1.5-6.6) 10^3/uL Lymph # (Auto) 0.5 L (1.5-3.5) 10^3/uL [place] # (Auto) 0.8 (0.0-1.0) 10^3/uL Eos # (Auto) 0.0 (0.0-0.7) 10^3/uL Baso # (Auto) 0.1 (0.0-0.1) 10^3/uL Absolute Nucleated RBC 0.00 x10^3/uL Nucleated RBC % 0.0 /100WBC Sodium 139 (135-145) mmol/L Potassium 4.7 (3.5-5.0) mmol/L Chloride 108 (101-111) mmol/L Carbon Dioxide 24 (21-32) mmol/L Anion Gap 7.0 (6-13) BUN 21 H (6-20) mg/dL Creatinine 1.1 H (0.4-1.0) mg/dL Estimated GFR (MDRD) 48 L (>89) Glucose 129 H (70-100) mg/dL Calcium 8.7 (8.5-10.3) mg/dL Total Bilirubin 0.7 (0.2-1.0) mg/dL AST 22 (10-42) IU/L ALT 22 (10-60) IU/L Alkaline Phosphatase 57 (42-121) IU/L Total Protein 6.1 L (6.7-8.2) g/dL Albumin 3.2 (3.2-5.5) g/dL Globulin 2.9 (2.1-4.2) g/dL Albumin/Globulin Ratio 1.1 (1.0-2.2) ABX Reporting Has patient been on IV antibiotics over the past 48 hours?: Yes Assessment/Plan - Problem List (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 She should avoid TYRONE/ARBs in the future due to this as medications that reduce after load are not ideal. I have started her on metoprolol succinate of 25mg PO daily, as this is a negative inotrope and it eases the force of the heart's contractions. Plan: continue metoprolol and monitor vital signs. (2) Post-operative pain Impression: Since her surgery, she has been prescribed oxycodone and tylenol. She underwent a physical therapy session today and it has been determined that she will be in good shape to return home with her and attend out patient PT if needed. Plan: continue to treat pain and continue daily PT. (3) Syncope and collapse Impression: The patient describes this episode that occurred around 7AM when she was alone in her kitchen, felt dizzy, slowly slid to the floor, had her cell phone in her pocket and called her who was in the next building. The story then becomes unclear as she claims she does not remember, although believes that she crawled into the bathroom. When he arrived, she appeared lethargic, so her attempted to lift her to her feet, but she seemed to loose conscio usness, so he lowered her back down to the floor. She started to wake up, so he again attempted to get her on her feet, but the same thing happened, where she went limp and seemed to loose consciousness. 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 Carotid dopplers show mild right and moderate left common and internal carotid artery atheromatous plaque with less than 50% stenosis. Echo results show a normal EF of 65-70%, grade 1 diastolic dysfunction, and possible IHSS, concluding the most likely reason for her collapse was lack of blood flow to her brain tissue as she likely did not have adequate intra- vascular fluid. Plan: Continue physical therapy, continue Metoprolol succinate 25mg daily, and monitor VS. (4) Closed right ankle fracture Impression: The patient has a confirmed right ankle fracture on imaging that notes a bimalleolar fracture. She underwent surgical repair with Dr. Shafer without known post-op complications. Upon exam, there has been no drainage. Plan: Continue care, treat pain and daily PT. Qualifiers: Encounter type: initial encounter Qualified Code(s): S82.891A - Other fracture of right lower leg, initial encounter for closed fracture (5) Fall Impression: The patient admits to a recent previous fall that was similar to this event and she sustained a chest wall contusion. This is resolved. For this fall, she had a brief warning, and soon slumped to the floor, but believes that she remained conscious until her attempted to stand her multiple times. The conclusion of her syncope work up is that she had intra-vascular depletion at the time of her fall, and she has been on a moderate dose ARB, which may have made this worse. She is also noted to have grade 1 diastolic dysfunction and possible IHSS. Plan: Continue fall precautions and continue metoprolol. Qualifiers: Encounter type: subsequent encounter Qualified Code(s): W19.XXXD - Unspecified fall, subsequent encounter (6) JAYLEN (acute kidney injury) Impression: The patient denies any history of kidney disease, is not diabetic and claims that she has never had any urinary problems. She is found to have an elevated creatinine of 1.1 upon admission, which remained unchanged each day despite gentle IV fluids, with an unknown baseline creatinine. Her current GFR is reduced at 48. Plan: Monitor daily labs and avoid nephrotoxins. (7) Polymyalgia rheumatica Impression: The patient has been on a steroid taper as per her PCP for this condition. She finds that her bilateral thighs are weak at times and she has generalized fatigue. Records from her last PCP office visit have been reviewed; Her original symptoms of UE myalgias has improved since starting her on prednisone. In addition to this complication she has had an eye infection and oral ulcers with a question of her also having Sjogren's syndrome. The patient complains of "always being thirsty", and having dry eyes. She has requested that her steroid taper be continued as usual, so I have resumed this. Plan: Continue steroids, and monitor for symptoms. Watch for s/s of infection due to prolonged steroid use. Encourage good oral intake and refresh eye drops, PRN. (8) Essential hypertension Impression: The patient has been changed to metoprolol succinate at 25mg PO daily. Blood pressures today are improved with a charted value of 129/80. Plan: Continue to monitor vital signs and continue Metoprolol.
[2018-06-18] MEDS ORDERED: DOCUSATE SODIUM 250 MG CAPSULE PO SCH (15:34)
[2018-06-18] MEDS ORDERED: SENNA 8.6 MG TABLET PO SCH (16:00)
[2018-06-18] MEDS: POLYETHYLENE GLYCOL 3350 17 GM PACKET PO SCH (16:10)
[2018-06-18] MEDS: TEMAZEPAM 7.5 MG CAPSULE PO SCH ×2 (20:29)
[2018-06-18] MEDS: ATORVASTATIN 40 MG TABLET PO SCH (20:30)
[2018-06-19] MEDS: SODIUM CHLORIDE 0.9% 1,000 ML IV SCH (04:41)
[2018-06-19 05:06] LABS: BASOPHILS % (AUTO) 0.3 %; EOSINOPHILS # (AUTO) 0.2 10^3/uL (0.0-0.7); EOSINOPHILS % (AUTO) 2.7 %; HGB - HEMOGLOBIN 8.9 g/dL (12.0-16.0); LYMPHOCYTES # (AUTO) 1.7 10^3/uL (1.5-3.5); LYMPHOCYTES % (AUTO) 19.7 %; MEAN CORPUSCULAR HEMOGLOBIN 30.8 pg (27.0-31.0); MEAN CORPUSCULAR HGB CONC 33.3 g/dL (32.0-36.0); MEAN CORPUSCULAR VOLUME 92.5 fL (81.0-99.0); MEAN PLATELET VOLUME 6.7 fL (7.9-10.8); MONOCYTES # (AUTO) 0.8 10^3/uL (0.0-1.0); MONOCYTES % (AUTO) 8.9 %; NEUTROPHILS # (AUTO) 5.8 10^3/uL (1.5-6.6); NEUTROPHILS % (AUTO) 68.4 %; PLT - PLATELET COUNT 172 10^3/uL (130-450); RED CELL DISTRIBUTION WIDTH 15.1 % (12.0-15.0); WHITE BLOOD COUNT 8.5 x10^3/uL (4.8-10.8)
[2018-06-19 05:16] LABS: ALBUMIN 3.1 g/dL (3.2-5.5); ALBUMIN/GLOBULIN RATIO 1.1 (1.0-2.2); BILIRUBIN,TOTAL 0.7 mg/dL (0.2-1.0); CALCIUM 8.5 mg/dL (8.5-10.3); CREATININE 0.9 mg/dL (0.4-1.0); TOTAL PROTEIN 5.9 g/dL (6.7-8.2)
[2018-06-19] MEDS: PANTOPRAZOLE 40 MG VIAL IVP SCH (06:04)
[2018-06-19] MEDS: SODIUM CHLORIDE FLUSH 0.9% 10 ML SYRINGE IVP SCH ×2 (06:07→08:11)
--- NOTE | 2018-06-19 08:06 | Discharge Plan ---
Discharge Plan Disposition: Home, Self Care Condition: Good Prescriptions: Aspirin [Leilani] 325 mg PO DAILY #30 tablet Metoprolol Succinate [Toprol Xl] 25 mg PO DAILY #30 tablet Diet: Regular Activity Restrictions: Activity as Tolerated Assistance Devices: Walker Weight Bearing: No Weight (right lower extremity-no weight for at least one month.) Instruction Topics: Metoprolol tablets Additional Instructions or Follow Up instructions: You were admitted for a right ankle fracture that was repaired by Dr. Shafer without post-op complications. Dr. Shafer's instructions: Mobilize as tolerated. Depending on progress in PT, will either go to SNF for post op rehab vs home with home PT. Consider a kneeling scooter to ensure non-weight bearing on right side. Follow up in Orthopedic clinic in 2 weeks or at your local follow up in [place], should you choose to head south within 2 weeks. To prevent blood clots, you should continue on a regular aspirin. You underwent a work up regarding your syncope (passing out) and were found to have age related changes in your heart that makes the choice of blood pressure medications more important. Please discontinue the Losartan and continue on the Metoprolol succinate daily that was started here in the hospital. You should always stay well hydrated and avoid alcohol. I have sent a prescriptions to the pharmacy. Please see your PCP within one week, and I will send her a detailed discharge summary. Follow-Up Care: Home Health - PT No Smoking: If you smoke, Please STOP! Call for help. Follow-up with: Jennie Pritchard MD [Primary Care Provider] -
[2018-06-19] MEDS: ASPIRIN 325 MG TABLET PO SCH (08:07)
[2018-06-19] MEDS: CALCIUM CARB (OYSTER SHELL) 500 MG TABLET PO SCH (08:07)
[2018-06-19] MEDS: CHOLECALCIFEROL 400 UNIT TABLET PO SCH (08:08)
[2018-06-19] MEDS: predniSONE 5 MG TABLET PO SCH (08:09)
[2018-06-19] MEDS: METOPROLOL SUCCINATE 25 MG TABLET PO SCH (08:34)
[2018-06-19 08:35] VITALS: BP 143/71
--- NOTE | 2018-06-19 09:15 | DISCHARGE SUMMARY ---
Discharge Summary Admit Date: 06/16/18 Discharge Date: 06/19/18 Discharging Provider: FARTUN Smith Primary Care Provider: Jennie Pritchard Code Status: Attempt Resuscitation Condition at Discharge: Good Discharge Disposition: 01 Home, Self Care - DIAGNOSES Admission Diagnoses: Syncope and collapse (R55) Oth fracture of right lower leg, init for clos fx (S82.891A) Encounter for other preprocedural examination (Z01.818) Unspecified fall, initial encounter (W19.XXXA) Acute kidney failure, unspecified (N17.9) Polymyalgia rheumatica (M35.3) Essential (primary) hypertension (I10) Discharge Diagnoses with Status of Each Condition: Syncope and collapse (R55) Most likely cause is the patient's newly diagnosis of with possible IHSS. Blood pressure medications changed. Closed right ankle fracture (S82.891A) new on this admit, now post op. Fall (W19.XXXA) chronic, stable. Patient encouraged to stay hydrated. 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 Post-operative pain (G89.18) controlled, narcotics not needed. JAYLEN (acute kidney injury) (N17.9) stable, may be baseline. Polymyalgia rheumatica (M35.3) chronic, stable. Essential hypertension (I10) chronic, doing well on new med. - HPI History of Present Illness: Christine Edward is a 77-year old female with a past medical history of hyperlipidemia, hypertension, diverticulosis, GERD, insomnia, osteoporosis, trigger finger, and DJD of ankle/foot. The patient presented to the ED with a primary complaint of syncope and collapse with right foot pain. The patient de scribes this episode that occurred around 7AM when she was alone in her kitchen, felt dizzy, slowly slid to the floor, had her cell phone in her pocket and called her who was in the next building. The story then becomes unclear as she claims she does not remember, although believes that she crawled into the bathroom and noticed her right ankle was not in alignment and thinks that it may have gotten caught under the island, and she was unable to bear weight. When her arrived, she appeared lethargic, so her attempted to lift her to her feet, but she seemed to loose consciousness, so he lowered her back down to the floor. She started to wake up, so he again attempted to get her on her feet, but the same thing happened, where she went limp and seemed to loose consciousness. EMS was called and she was transported to the ED arriving around 0850AM. Imaging of the patient's right ankle, chest and a head CT was completed. All showed no abnormalities, except the ankle x-ray showing an acute bimalleolar fracture, so a call to orthopedic surgery was made. She was seen and examined in the ED by Dr. Shafer, but he would appreciate Hospitalist to be the primary for a pre-op exam and further investigation into the patient's syncope and collapse. Labs showed dehydration leading to acute kidney injury with an elevated BUN of 32, an elevated creatinine of 1.1, and a reduced GFR of 48. She had a low sodium of 133, an elevated glucose of 111 and an elevated bili of 1.1. Her troponin was negative at 0.4, and she had a mildly low lipase of 61. Her CBC reflects recent steroid use with an elevated WBC count of 13.6. She was hypertensive with a blood pressure of 168/99, tachycardia with a heart rate of 105, and afebrile. On exam, the patient is conversational, no focal deficits, and has had no other injuries from her fall. She denies chest pain, shortness of breath, rashes, nausea, vomiting, poor appetite, or a new cough. She will be admitted to inpatient as she has electrolyte abnormalities, will undergo a syncope work up, and will undergo a surgical repair of her right ankle if her work up is normal. Her and daughter are at the bedside for this exam. - HOSPITAL COURSE Hospital Course: (1) Systolic anterior movement of mitral valve Final echo report notes involving the mitral leaflet without significant LV outlet obstruction. Also seen is probable IHSS, which helps explain the pat ient's syncope and collapse. She should avoid TYRONE/ARBs in the future due to this as medications that reduce after load are not ideal. I have started her on metoprolol succinate of 25mg PO daily, as this is a negative inotrope and it eases the force of the heart's contractions. (2) Post-operative pain Since her surgery, she has been prescribed oxycodone and tylenol. She underwent a physical therapy session today and it has been determined that she will be in good shape to return home with her and attend out patient PT if needed. (3) Syncope and collapse The patient describes this episode that occurred around 7AM when she was alone in her kitchen, felt dizzy, slowly slid to the floor, had her cell phone in her pocket and called her who was in the next building. The story then becomes unclear as she claims she does not remember, although believes that she crawled into the bathroom. When he arrived, she appeared lethargic, so her attempted to lift her to her feet, but she seemed to loose consci ousness, so he lowered her back down to the floor. She started to wake up, so he again attempted to get her on her feet, but the same thing happened, where she went limp and seemed to loose consciousness. 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 Carotid dopplers show mild right and moderate left common and internal carotid artery atheromatous plaque with less than 50% stenosis. Echo results show a normal EF of 65-70%, grade 1 diastolic dysfunction, and possible IHSS, concluding the most likely reason for her collapse was lack of blood flow to her brain tissue as she likely did not have adequate intra- vascular fluid. (4) Closed right ankle fracture The patient has a confirmed right ankle fracture on imaging that notes a bimalleolar fracture. She underwent surgical repair with Dr. Shafer without known post-op complications. Upon exam, there has been no drainage. (5) Fall The patient admits to a recent previous fall that was similar to this event and she sustained a chest wall contusion. This is resolved. For this fall, she had a brief warning, and soon slumped to the floor, but believes that she remained conscious until her attempted to stand her multiple times. The conclusion of her syncope work up is that she had intra-vascular depletion at the time of her fall, and she has been on a moderate dose ARB, which may have made this worse. She is also noted to have grade 1 diastolic dysfunction and possible IHSS. (6) JAYLEN (acute kidney injury) The patient denies any history of kidney disease, is not diabetic and claims that she has never had any urinary problems. She is found to have an elevated creatinine of 1.1 upon admission, which remained unchanged each day despite gentle IV fluids, with an unknown baseline creatinine. Her current GFR is r educed at 48. (7) Polymyalgia rheumatica The patient has been on a steroid taper as per her PCP for this condition. She finds that her bilateral thighs are weak at times and she has generalized fatigue. Records from her last PCP office visit have been reviewed; Her original symptoms of UE myalgias has improved since starting her on prednisone. In addition to this complication she has had an eye infection and oral ulcers with a question of her also having Sjogren's syndrome. The patient complains of "always being thirsty", and having dry eyes. She has requested that her steroid taper be continued as usual, so I have resumed this. (8) Essential hypertension The patient has been changed to metoprolol succinate at 25mg PO daily. Blood pressures today are improved with a charted value of 129/80. Disposition: The patient was transported home with her and one of our nursing assistants graciously lifted her into her 's tall truck as she did not have the strength to hop up into it once she was wheeled out side. She had a regular aspirin and a new prescription for metoprolol at the pharmacy. She was not using any narcotics, so a prescription was not given. She was given a hand written prescription for a kneeling scooter to be used at her discretion. - ALLERGIES Allergies/Adverse Reactions: Allergies Allergy/AdvReac Type Severity Reaction Status Date / Time Penicillins Allergy Intermediate Anaphylaxis Verified 06/16/18 08:57 fish Allergy Unknown Unknown Uncoded 06/17/18 12:49 - MEDICATIONS Home Medications: Ambulatory Orders Medication Instructions Recorded Confirmed Aspirin 162 mg PO DAILY 06/16/18 06/16/18 Atorvastatin Calcium 80 mg PO QPM 06/16/18 06/16/18 Calcium Carbonate/Vitamin D3 1 tab PO DAILY 06/16/18 06/16/18 [Calcium 500-Vit D3 600 Caplet] Multivitamin [Theragran] 1 tab PO DAILY 06/16/18 06/16/18 [place]-3 Acid Ethyl Esters [Lovaza] 1 gm PO DAILY 06/16/18 06/16/18 Omeprazole 20 mg PO QDAC 06/16/18 06/16/18 Polyethylene Glycol 3350 17 gm PO QPM 06/16/18 06/16/18 Prednisone 10 mg PO [id number] 06/16/18 06/16/18 Vitamin B Complex 1 tab PO DAILY 06/16/18 06/16/18 predniSONE [Prednisone] 12.5 mg PO [id number] 06/16/18 06/16/18 Aspirin [Leilani] 325 mg PO DAILY #30 tablet 06/19/18 Metoprolol Succinate [Toprol Xl] 25 mg PO DAILY #30 tablet 06/19/18 - PHYSICAL EXAM AT DISCHARGE General Appearance: positive: No acute distress, Alert Eyes Bilateral: positive: PERRL, Other (chronic dry eyes) ENT: positive: Pharynx nml, Dry mucous membranes Neck: positive: Thyroid nml, No JVD, Trachea midline Respiratory: positive: Chest non-tender, No respiratory distress, Breath sounds nml Cardiovascular: positive: Regular rate & rhythm, No gallop Peripheral Pulses: positive: 2+ Abdomen: positive: Non-tender, Nml bowel sounds Back: positive: Nml inspection Skin: positive: No rash, Warm, Dry Extremities: positive: Pedal edema, Joint swelling, Other (RLE with expected post op swelling.) Neurologic/Psychiatric: positive: Oriented x3, CN's nml (2-12), Motor nml, Sensation nml, Mood/affect nml Reflexes: Bicep (R): 3+, Bicep (L): 3+ - LABS Result Diagrams: 06/19/18 04:20 06/19/18 04:20 - DIAGNOSTIC IMAGING Diagnostic Imaging Results: Final report reviewed Diagnostic Imaging Results Comments: EXAM: RIGHT ANKLE RADIOGRAPHY EXAM DATE: 06/16/2018 09:48 AM. FINDINGS: Bimalleolar fracture with lateral displacement of the foot in respect to the proximal tibia and fibula. 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 IMPRESSION: Bimalleolar fracture. EXAM: CHEST RADIOGRAPHY EXAM DATE: 06/16/2018 09:48 AM. IMPRESSION: Normal 2-view chest radiography. EXAM: CT HEAD EXAM DATE: 06/16/2018 10:16 AM. IMPRESSION: No acute intracranial abnormality. EXAM: MRI BRAIN WITHOUT CONTRAST EXAM DATE: 06/16/2018 02:13 PM. IMPRESSION: No MRI evidence for acute intracranial abnormality. Mild atrophy. Mild multifocal findings of chronic ischemic brain disease including small bilateral chronic cerebellar infarcts. EXAM: BILATERAL CAROTID AND VERTEBRAL ARTERY DUPLEX DOPPLER ULTRASOUND: EXAM DATE: 06/16/2018 10:06 PM IMPRESSION: 1. Mild right and moderate left common and internal carotid artery atheromatous plaque with less than 50% stenosis. EXAM: RIGHT ANKLE RADIOGRAPHY EXAM DATE: 06/17/2018 10:23 AM. IMPRESSION: Interval ORIF, satisfactory alignment. ECHOCARDIOGRAM: Final read by Pedrito Gimenez MD 1. Normal LV size and function. EF 65%. There is mild diastolic dysfunction. LA is normal in size. 2. Mild aortic sclerosis with normal valve function throughout. 3. Normal pulmonary pressure. Normal RV size and function. Mild with no significant LVOT obstruction. - FOLLOW UP Follow Up: Disposition: Home, Self Care Condition: Good Prescriptions: Aspirin [Leilani] 325 mg PO DAILY #30 tablet Metoprolol Succinate [Toprol Xl] 25 mg PO DAILY #30 tablet Diet: Regular Activity Restrictions: Activity as Tolerated Assistance Devices: Walker Weight Bearing: No Weight (right lower extremity-no weight for at least one mo nth.) Instruction Topics: Metoprolol tablets Additional Instructions or Follow Up instructions: You were admitted for a right ankle fracture that was repaired by Dr. Shafer without post-op complications. Dr. Shafer's instructions: Mobilize as tolerated. Depending on progress in PT, will either go to SNF for post op rehab vs home with home PT. Consider a kneeling scooter to ensure non-weight bearing on right side. Follow up in Orthopedic clinic in 2 weeks or at your local follow up in [place], should you choose to head south within 2 weeks. To prevent blood clots, you should continue on a regular aspirin. You underwent a work up regarding your syncope (passing out) and were found to have age related changes in your heart that makes the choice of blood pressure medications more important. Please discontinue the Losartan and continue on the Metoprolol succinate daily that was started here in the hospital. You should always stay well hydrated and avoid alcohol. REPEAT carotid dopplers in 1-2 years due to mild stenosis. - TIME SPENT Time Spent in Discharge (Minutes): 60
--- NOTE | 2018-06-19 10:40 | PROVIDER PROGRESS NOTE ---
Subjective - Prog Note Date Prog Note Date: 06/19/18 Prog Note Time: 10:38 - Subjective Pt reports feeling: Improved Objective - Vital Signs/Intake & Output Vital Signs: Vital Signs x48h Temp Pulse Resp BP Pulse Ox 06/19/18 08:30 36.7 C 84 16 143/71 H 96 Intake & Output: Intake & Output 06/16/18 06/17/18 06/18/18 06/19/18 23:59 23:59 23:59 23:59 Intake Total 666.25 3453.051 3100.000 1873 Output Total 400 1000 1350 Balance 266.25 2453.051 4478.934 6800 - Lab Results Fish Bones: 06/19/18 04:20 06/19/18 04:20 Other Labs: Lab Results x24hrs 06/19/18 06/19/18 Range/Units 04:20 04:20 WBC 8.5 (4.8-10.8) x10^3/uL RBC 2.90 L (4.20-5.40) 10^6/uL Hgb 8.9 L (12.0-16.0) g/dL Hct 26.8 L (37.0-47.0) % MCV 92.5 (81.0-99.0) fL MCH 30.8 (27.0-31.0) pg MCHC 33.3 (32.0-36.0) g/dL RDW 15.1 H (12.0-15.0) % Plt Count 172 (130-450) 10^3/uL MPV 6.7 L (7.9-10.8) fL Neut # (Auto) 5.8 (1.5-6.6) 10^3/uL Lymph # (Auto) 1.7 (1.5-3.5) 10^3/uL [place] # (Auto) 0.8 (0.0-1.0) 10^3/uL Eos # (Auto) 0.2 (0.0-0.7) 10^3/uL Baso # (Auto) 0.0 (0.0-0.1) 10^3/uL Absolute Nucleated RBC 0.01 x10^3/uL Nucleated RBC % 0.1 /100WBC Sodium 142 (135-145) mmol/L Potassium 4.0 (3.5-5.0) mmol/L Chloride 111 (101-111) mmol/L Carbon Dioxide 23 (21-32) mmol/L Anion Gap 8.0 (6-13) BUN 21 H (6-20) mg/dL Creatinine 0.9 (0.4-1.0) mg/dL Estimated GFR (MDRD) 61 L (>89) Glucose 92 (70-100) mg/dL Calcium 8.5 (8.5-10.3) mg/dL Total Bilirubin 0.7 (0.2-1.0) mg/dL AST 25 (10-42) IU/L ALT 21 (10-60) IU/L Alkaline Phosphatase 60 (42-121) IU/L Total Protein 5.9 L (6.7-8.2) g/dL Albumin 3.1 L (3.2-5.5) g/dL Globulin 2.8 (2.1-4.2) g/dL Albumin/Globulin Ratio 1.1 (1.0-2.2) - Other Results/Comments Other Results/Comments: EXAM: Splint ok. Moves toes well. Sensation intact. Good cap filling. Up to bathroom with minimal assist - NWB on right Assessment/Plan - Problem List (1) Closed right ankle fracture Impression: Satis post op PLAN: D/C home today. Walker ambulate - NWB on right for 4 weeks or so. Cast/splint precautions. Office visit in 2 weeks for ernst out and new XR, prior to her trip to [place]. Qualifiers: Encounter type: initial encounter Qualified Code(s): S82.891A - Other fract ure of right lower leg, initial encounter for closed fracture
[2018-06-20] MEDS ORDERED: predniSONE 5 MG TABLET PO SCH (09:00)
== END 2018-06-19 12:40 | disposition home or self-care (01) | DRG 982 ==
LOC: ED 08:50 → MS2 12:38 → ED 13:15
PROVIDERS: ADMIT Nurse Practitioner; ATTEND Nurse Practitioner
PROC: 0QSG04Z Reposition Right Tibia with Internal Fixation Device, Open Approach (ICD-10-PCS; 2018-06-17)
PROC: 0QSJ04Z Reposition Right Fibula with Internal Fixation Device, Open Approach (ICD-10-PCS; principal; 2018-06-17 07:30)
DX: R55 Syncope and collapse (principal); N17.9 Acute kidney failure, unspecified; E87.1 Hypo-osmolality and hyponatremia; I42.1 Obstructive hypertrophic cardiomyopathy; I67.82 Cerebral ischemia; S82.841A Displaced bimalleolar fracture of right lower leg, initial encounter for closed fracture; M35.3 Polymyalgia rheumatica; W18.30XA Fall on same level, unspecified, initial encounter; Y92.000 Kitchen of unspecified non-institutional (private) residence as the place of occurrence of the external cause; I34.8 Other nonrheumatic mitral valve disorders; I11.9 Hypertensive heart disease without heart failure; I65.22 Occlusion and stenosis of left carotid artery; E78.00 Pure hypercholesterolemia, unspecified; M19.079 Primary osteoarthritis, unspecified ankle and foot; R73.9 Hyperglycemia, unspecified; E78.5 Hyperlipidemia, unspecified; K21.9 Gastro-esophageal reflux disease without esophagitis; G47.00 Insomnia, unspecified; M81.0 Age-related osteoporosis without current pathological fracture; K59.09 Other constipation; R29.6 Repeated falls; Z79.82 Long term (current) use of aspirin; Z79.52 Long term (current) use of systemic steroids; Z86.73 Personal history of transient ischemic attack (TIA), and cerebral infarction without residual deficits
CPT/HCPCS: 36415; 70450; 70551; 71046; 80053; 80306; 81001; 81003; 82150; 83036; 83690; 83735; 84100; 84443; 84484; 85025; 85610; 85730; 87086; 93005; 93306; 93880; 94770; 96361; 96374; 96375; 99284

== ENCOUNTER 2019-02-06 13:15 | Outpatient (CLI) | payer MEDICARE, OTHER ==
[2019-02-06 14:06] LABS: BILIRUBIN,DIRECT 0.1 mg/dL (0.1-0.5); BILIRUBIN,TOTAL 0.8 mg/dL (0.2-1.0); TOTAL PROTEIN 7.5 g/dL (6.7-8.2)
== END 2019-02-06 13:16 | disposition home or self-care (01) ==
LOC: LAB 13:15
PROVIDERS: ATTEND Internal Medicine
DX: R94.5 Abnormal results of liver function studies (principal)
CPT/HCPCS: 36415; 80076

== ENCOUNTER 2019-02-23 14:24 | Outpatient (CLI) | payer MEDICARE, OTHER ==
[2019-02-23 14:56] LABS: BILIRUBIN,DIRECT 0.1 mg/dL (0.1-0.5); BILIRUBIN,TOTAL 0.7 mg/dL (0.2-1.0)
== END 2019-02-23 14:25 | disposition home or self-care (01) ==
LOC: LAB 14:24
PROVIDERS: ATTEND Internal Medicine
DX: R79.89 Other specified abnormal findings of blood chemistry (principal); E78.2 Mixed hyperlipidemia
CPT/HCPCS: 36415; 80076

== ENCOUNTER 2019-04-21 08:00 | Outpatient (CLI) | payer MEDICARE, OTHER ==
[2019-04-21 09:25] LABS: MEAN CORPUSCULAR HGB CONC 32.3 g/dL (32.0-36.0); MEAN CORPUSCULAR VOLUME 95.9 fL (81.0-99.0); MEAN PLATELET VOLUME 8.9 fL (7.9-10.8); RED BLOOD COUNT 3.87 10^6/uL (4.20-5.40); RED CELL DISTRIBUTION WIDTH 13.1 % (12.0-15.0)
[2019-04-21 09:43] LABS: ALBUMIN 4.2 g/dL (3.2-5.5); ALBUMIN/GLOBULIN RATIO 1.3 (1.0-2.2); ALKALINE PHOSPHATASE 66 IU/L (42-121); ALT ALANINE AMINOTRANSFERASE 15 IU/L (10-60); AST ASPARTATE AMINOTRANSFERASE 20 IU/L (10-42); BILIRUBIN,TOTAL 0.8 mg/dL (0.2-1.0); BUN - BLOOD UREA NITROGEN 35 mg/dL (6-20); CALCIUM 9.9 mg/dL (8.5-10.3); CARBON DIOXIDE - CO2 25 mmol/L (21-32); CHLORIDE 103 mmol/L (101-111); CHOL/HDL RATIO 2.7 (<4.4); CHOLESTEROL 179 mg/dL; CREATININE 1.3 mg/dL (0.4-1.0); GFR - MDRD 40 (>89); GLUCOSE 108 mg/dL (70-100); HDL CHOLESTEROL 66 mg/dL; LDL CHOLESTEROL,CALCULATED 99 mg/dL; LDL/HDL RATIO 1.5 (<4.4); SODIUM 140 mmol/L (135-145); TOTAL PROTEIN 7.5 g/dL (6.7-8.2); VLDL CHOLESTEROL 14 mg/dL
[2019-04-21 10:01] LABS: FERRITIN 41.8 ng/mL (11.0-306.8)
== END 2019-04-21 23:59 | disposition home or self-care (01) ==
LOC: LAB 08:00
PROVIDERS: ATTEND Internal Medicine
DX: D64.9 Anemia, unspecified (principal); I10 Essential (primary) hypertension; E78.2 Mixed hyperlipidemia; M35.3 Polymyalgia rheumatica
CPT/HCPCS: 36415; 80053; 80061; 82728; 83721; 84443; 85027; 85651; 86140

== ENCOUNTER 2019-06-16 09:14 | Outpatient (CLI) | payer MEDICARE, OTHER | END 2019-06-16 09:15 | disposition home or self-care (01) | LOC: LAB 09:14 | PROVIDERS: ATTEND Ophthalmology | DX: G45.3 Amaurosis fugax (principal); Z79.52 Long term (current) use of systemic steroids; Z87.39 Personal history of other diseases of the musculoskeletal system and connective tissue | CPT/HCPCS: 36415; 85651; 86140 ==

== ENCOUNTER 2020-06-03 09:21 | Emergency (ER) | payer MEDICARE, OTHER ==
--- NOTE | 2020-06-03 10:06 | ED Physician Documentation ---
PD HPI BACK PAIN - Stated complaint Stated Complaint: L SIDE PX - Chief complaint Chief Complaint: Back Pain - History obtained from History obtained from: Patient, Family - History of Present Illness Timing - onset: How many days ago (33) Timing - duration: Days Timing - details: Abrupt onset, Still present Location: Mid, Lower, Left Quality: Pain, Sharp Associated symptoms: No: Fever, Weakness, Numbness, Incontinent of urine, Unable to urinate, Hematuria, Incontinent of stool Improves with: Rest, Position Worsened by: Movement, Twisting Contributing factors: Other (slipped on a wet step and fell against a wooden step) Similar symptoms before: Has not had sx before Recently seen: Not recently seen - Additional information Additional information: Previously well 79-year-old female with history of hypertension and CVA was on Plavix was going down her steps 3 days ago in the rain slipped on a step and fell onto her left side against a wooden step. She has persistent pain to the left flank and she is okay if she is motionless when she goes to get up or turn from laying down she has significant pain. Review of Systems Constitutional: denies: Fever Respiratory: reports: Dyspnea. denies: Cough GI: denies: Vomiting : denies: Dysuria Skin: denies: Rash PD PAST MEDICAL HISTORY - Past Medical History Cardiovascular: Hypertension, High cholesterol Respiratory: None Neuro: CVA, Fainting Endocrine/Autoimmune: Other GI: GERD, Chronic constipation, Diverticulitis SECOND HELPER: None : None HEENT: None Psych: Other Musculoskeletal: Osteoarthritis, Osteoporosis, Other Derm: None - Past Surgical History Past Surgical History: Yes General: Colonoscopy Ortho: Other - Present Medications Home Medications: Ambulatory Orders Medication Instructions Recorded Confirmed Aspirin 162 mg PO DAILY 06/16/18 06/16/18 Atorvastatin Calcium 80 mg PO QPM 06/16/18 06/16/18 Calcium Carbonate/Vitamin D3 1 tab PO DAILY 06/16/18 06/16/18 [Calcium 500-Vit D3 600 Caplet] Multivitamin [Theragran] 1 tab PO DAILY 06/16/18 06/16/18 [place]-3 Acid Ethyl Esters [Lovaza] 1 gm PO DAILY 06/16/18 06/16/18 Omeprazole 20 mg PO QDAC 06/16/18 06/16/18 Prednisone 10 mg PO [id number] 06/16/18 06/16/18 Vitamin B Complex 1 tab PO DAILY 06/16/18 06/16/18 polyethylene glycoL 3350 17 gm PO QPM 06/16/18 06/16/18 [Polyethylene Glycol 3350] predniSONE [Prednisone] 12.5 mg PO [id number] 06/16/18 06/16/18 Aspirin [Leilani] 325 mg PO DAILY #30 tablet 06/19/18 Metoprolol Succinate [Toprol Xl] 25 mg PO DAILY #30 tablet 06/19/18 traMADol [Ultram] 50 - 100 mg PO Q6HR PRN #20 tablet 06/03/20 - Allergies Allergies/Adverse Reactions: Allergies Allergy/AdvReac Type Severity Reaction Status Date / Time Penicillins Allergy Intermediate Anaphylaxis Verified 06/03/20 09:30 fish Allergy Unknown Unknown Uncoded 06/03/20 09:30 - Social History Does the pt smoke?: No Smoking Status: Never smoker Does the pt drink ETOH?: No Does the pt have substance abuse?: No - Immunizations Immunizations are current?: Yes - POLST Patient has POLST: No POLST Status: Full Code PD ED PE NORMAL - Vitals Vital signs reviewed: Yes (hypertensive) - General General: Alert and oriented X 3, No acute distress, Well developed/nourished - HEENT HEENT: Atraumatic, PERRL, EOMI - Respiratory Respiratory: No respiratory distress - Back Back: No spinal TTP, Other (mild tenderness to the left flank posteriorly. No anterior pain ) - Derm Derm: Normal color, Warm and dry, No rash - Extremities Extremities: No deformity, No edema - Neuro Neuro: Alert and oriented X 3, sewing machine repairer helper 2-12 intact, No motor deficit, No sensory deficit, Normal speech Eye Opening: Spontaneous Motor: Obeys Commands Verbal: Oriented GCS Score: 15 - Psych Psych: Normal mood, Normal affect Results - Vitals Vitals: Vital Signs - 24 hr 06/03/20 09:24 Temperature 36.6 C Heart Rate 96 Respiratory 17 Rate Blood Pressure 131/93 H O2 Saturation 99 Oxygen O2 Source [Without Activity] Room air O2 Source Room air - Rads (name of study) CT ab/pel w/o Radiology: Prelim report reviewed (Impression: In this patient with given history of left lung contusion, no flank bruising is seen. No rib fractures or kidney abnormalities are seen. There is a moderate amount of stool seen within the colon. Please correlate with clinical constipation.), EMP read inde pedently, See rad report PD MEDICAL DECISION MAKING - ED course Complexity details: reviewed results, re-evaluated patient, considered differential, d/w patient ED course: 79-year-old female with a fall against a step has a thoracolumbar contusion without evidence of rib fracture or or hematoma or injury to internal organs. We will prescribe some pain medication to use as needed. Departure - Departure Disposition: 01 Home, Self Care Clinical Impression: Lumbar contusion Qualifiers: Encounter type: initial encounter Qualified Code(s): S30.0XXA - Contusion of lower back and pelvis, initial encounter Condition: Stable Instructions: ED Contusion Back Follow-Up: Jennie Pritchard MD [Primary Care Provider] - Prescriptions: traMADol [Ultram] 50 - 100 mg PO Q6HR PRN #20 tablet PRN Reason: Pain
--- NOTE | 2020-06-03 11:48 | CT Report ---
PROCEDURE: Abdomen/Pelvis WO INDICATIONS: left flank contusion TECHNIQUE: Noncontrast 5 mm thick sections acquired from the diaphragms to the symphysis. 5 mm coronal and sagi ttal reformats were then performed. For radiation dose reduction, the following was used: automated exposure control, adjustment of mA and/or kV according to patient size. COMPARISON: None. FINDINGS: Image quality: Excellent. ABDOMEN: Lung bases: Mild streaky atelectasis can be seen dependently at both lung bases. Heart size is normal . Solid organs: Liver and spleen are normal in size. Gallbladder demonstrates a gallstone within the fundus of the gallbladder, as on series 4 image 26. Pancreas is normal in contours. No adrenal nodu les. Kidneys are normal in size, without hydronephrosis or nephrolithiasis. Peritoneum and bowel: A moderate to prominent amount of stool is seen within the colon. Diverticulos is can be seen, without freedom findings of active diverticulitis. The colon is redundant and tortuous, particularly the sigmoid colon. Unenhanced bowel loops demonstrate normal wall thickness and caliber . No free fluid or air. Nodes and vessels: No retroperitoneal or mesenteric adenopathy by size criteria. Aorta and inferior vena cava are normal in caliber. Miscellaneous: No ventral hernias. In this patient with this given history, scrutiny is given to th e left flank. No flank bruising can be seen. No soft tissue fluid collections can be seen. No flank m uscular abnormalities are seen. PELVIS: Genitourinary: Bladder wall thickness is normal. The uterus demonstrates an unremarkable appearance for age. No adnexal masses are seen. Miscellaneous: No inguinal hernias or adenopathy. Bones: No suspicious bony lesions. No rib fractures are seen. No vertebral body compression fracture s. Mild to moderate dextroconvex scoliosis is seen. Age-appropriate degenerative changes are seen. IMPRESSION: In this patient with a given history of left flank contusion, no flank bruising is seen. No rib fractures or kidney abnormalities are seen. There is a moderate amount of stool seen within the colon. Please correlate with clinical constipatio n. Incidental note is made of: Dependent atelectasis Gallstone Dextroconvex scoliosis Diverticulosis, without active diverticulitis Reviewed by: Pablo Calderon MD on 06/03/2020 10:47 AM AKDT Approved by: Pablo Calderon MD on 06/03/2020 10:47 AM GARRY Station ID: [id number]
[2020-06-03] MEDS ORDERED: KETOROLAC 60 MG/2 ML VIAL IM STA (12:05)
[2020-06-03 12:21] VITALS: BP 136/84
== END 2020-06-03 12:21 | disposition home or self-care (01) ==
LOC: ED 09:21
DX: S30.0XXA Contusion of lower back and pelvis, initial encounter (principal); W10.9XXA Fall (on) (from) unspecified stairs and steps, initial encounter; Y93.89 Activity, other specified
CPT/HCPCS: 74176; 99284

== ENCOUNTER 2022-01-12 07:03 | Emergency (ER) | payer MEDICARE, OTHER ==
[2022-01-12 07:19] VITALS: BP 160/89
[2022-01-12] MEDS ORDERED: DEXAMETHASONE 10 MG/ML VIAL PO STA (07:24)
[2022-01-12] MEDS ORDERED: CHERRY SYRUP 10 ML UDC PO ONE (07:24)
--- NOTE | 2022-01-12 07:27 | ED Physician Documentation ---
History of Present Illness - Stated complaint Stated Complaint: FACE SWELLING - Chief complaint Chief Complaint: Allergic Rx - History obtained from History obtained from: Patient, Family - History of Present Illness Timing: How many weeks ago (1) Pain level max: 0 Pain level now: 0 - Additonal information Additional information: Patient is an 81-year-old female brought in by her today. They state that for the past week she has had redness and swelling on her upper and lower eyelids around both eyes. No visual changes. She states that this usually happens every year and usually improves with steroids. She saw her eye doctor who did not think that there was an infection present. She then spoke with her PCP who recommended antihistamines. Patient states that her eyes are itchy. No vision changes. No drainage. No fevers. No chills. Her states that it sounded like she was "panting" this morning. Patient states that she is having no difficulty breathing, speaking or swallowing. Review of Systems Constitutional: denies: Fever, Chills Eyes: denies: Decreased vision, Photophobia Ears: denies: Ear pain Nose: denies: Rhinorrhea / runny nose, Congestion Respiratory: denies: Cough GI: denies: Vomiting, Diarrhea Skin: denies: Rash Musculoskeletal: denies: Neck pain, Back pain Neurologic: denies: Headache PD PAST MEDICAL HISTORY - Past Medical History Cardiovascular: Hypertension, High cholesterol Respiratory: None Neuro: CVA, Fainting Endocrine/Autoimmune: Other GI: GERD, Chronic constipation, Diverticulitis [employer]: None : None HEENT: None Psych: Other Musculoskeletal: Osteoarthritis, Osteoporosis, Other Derm: None - Past Surgical History Past Surgical History: Yes General: Colonoscopy Ortho: Other - Present Medications Home Medications: Ambulatory Orders Medication Instructions Recorded Confirmed Aspirin 81 mg PO DAILY 06/16/18 01/12/22 Atorvastatin Calcium 80 mg PO QPM 06/16/18 01/12/22 Calcium Carbonate/Vitamin D3 1 tab PO DAILY 06/16/18 01/12/22 [Calcium 500-Vit D3 600 Caplet] Omeprazole 20 mg PO QDAC 06/16/18 01/12/22 Vitamin B Complex 1 tab PO DAILY 06/16/18 01/12/22 polyethylene glycoL 3350 17 gm PO QPM 06/16/18 01/12/22 [Polyethylene Glycol 3350] Clopidogrel [Plavix] 75 mg PO DAILY 01/12/22 01/12/22 Ezetimibe [Zetia] 10 mg PO DAILY 01/12/22 01/12/22 Ketotifen Fumarate [Eye Itch 1 drops EACHEYE BID #1 bottle 01/12/22 Relief] Multivitamin/Iron/Folic Acid 1 each PO DAILY 01/12/22 01/12/22 [Centrum Women Tablet] Vit C/E/Zn/Coppr/Lutein/Zeaxan 2 tab PO DAILY 01/12/22 01/12/22 [Preservision Areds 2 Chew Tab] dexAMETHasone [Decadron] 4 mg PO DAILY #5 tablet 01/12/22 lisinopriL [Zestril] 5 mg PO DAILY 01/12/22 01/12/22 - Allergies Allergies/Adverse Reactions: Allergies Allergy/AdvReac Type Severity Reaction Status Date / Time Penicillins Allergy Intermediate Anaphylaxis Verified 01/12/22 07:16 fish Allergy Unknown Unknown Uncoded 01/12/22 07:16 - Social History Does the pt smoke?: No Smoking Status: Never smoker Does the pt drink ETOH?: No Does the pt have substance abuse?: No - Immunizations Immunizations are current?: Yes - POLST Patient has POLST: No POLST Status: Full Code PD ED PE NORMAL - Vitals Vital signs reviewed: Yes - General General: Alert and oriented X 3, No acute distress - HEENT HEENT: PERRL, Moist mucous membranes, Other (Bilateral upper and lower eyelids are erythematous and mildly swollen. Normal conjunctiva. Normal vision.) - Neck Neck: Supple, no meningeal sign - Cardiac Cardiac: RRR - Respiratory Respiratory: No respiratory distress, Clear bilaterally, Other (No wheezing or stridor) - Derm Derm: Warm and dry, No rash - Neuro Neuro: Alert and oriented X 3 - Psych Psych: Normal mood, Normal affect Results - Vitals Vitals: Vital Signs - 24 hr 01/12/22 07:11 Temperature 36.5 C Heart Rate 83 Respiratory 16 Rate Blood Pressure 160/89 H O2 Saturation 98 Oxygen O2 Source [Without Activity] Room air O2 Source Room air PD MEDICAL DECISION MAKING - ED course Complexity details: considered differential, d/w patient ED course: 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 We will place her on a short course of oral steroids as well as ketotifen eyedrops. No evidence of anaphylaxis, no stridor. No wheezing. Patient is well-appearing, nontoxic. Afebrile. No angioedema. Patient and family counseled regarding signs and symptoms for which I believe and urgent re-evaluation would be necessary. Patient with good understanding of and agreement to plan and is comfortable going home at this time This document was made in part using voice recognition software. While efforts are made to proofread this document, sound alike and grammatical errors may occur. Departure - Departure Disposition: Home, Self Care Clinical Impression: Blepharitis Qualifiers: Blepharitis type: unspecified type Laterality: bilateral Eyelid: both upper and lower Qualified Code(s): H01.00A - Unspecified blepharitis right eye, upper and lower eyelids Condition: Good Instructions: ED Inflammation Eyelid Follow-Up: Jennie Pritchard MD [Primary Care Provider] - Within 1 week Prescriptions: dexAMETHasone [Decadron] 4 mg PO DAILY #5 tablet Ketotifen Fumarate [Eye Itch Relief] 1 drops EACHEYE BID #1 bottle Comments: Your prescriptions were sent to [facility] in [place]. Please follow-up with your doctor for further care. Return if you worsen. Discharge Date/Time: 01/12/22 07:34
== END 2022-01-12 07:34 | disposition home or self-care (01) ==
LOC: ED 07:03
DX: H01.00A Unspecified blepharitis right eye, upper and lower eyelids (principal)
CPT/HCPCS: 99282; A9270